=== PATIENT | male | born 1950 | race Caucasian/White ===

== ENCOUNTER 2019-07-08 11:00 | Outpatient (RCR) | payer SELFPAY | END 2019-08-07 00:01 | LOC: CR 11:00 | PROVIDERS: Family Provider Family Medicine; Visit Provider Internal Medicine Cardiovascular Disease | DX: I50.21 Acute systolic (congestive) heart failure (principal) ==

== ENCOUNTER 2019-08-15 08:50 | Outpatient (RCR) | payer SELFPAY | END 2019-09-07 23:59 | disposition home or self-care (01) | LOC: CR 08:50 | PROVIDERS: Family Provider Family Medicine; PCP Family Medicine; Referring Provider Internal Medicine Cardiovascular Disease; Visit Provider Internal Medicine Cardiovascular Disease | DX: I50.21 Acute systolic (congestive) heart failure (principal) ==

== ENCOUNTER 2019-09-10 11:20 | Outpatient (RCR) | payer SELFPAY | END 2019-10-06 23:59 | disposition home or self-care (01) | LOC: CR 11:20 | PROVIDERS: Family Provider Family Medicine; PCP Family Medicine; Referring Provider Internal Medicine Cardiovascular Disease; Visit Provider Internal Medicine Cardiovascular Disease | DX: I50.21 Acute systolic (congestive) heart failure (principal) ==

== ENCOUNTER 2019-10-08 11:38 | Outpatient (RCR) | payer SELFPAY | END 2019-11-06 23:59 | disposition home or self-care (01) | LOC: CR 11:38 | PROVIDERS: Family Provider Family Medicine; PCP Family Medicine; Referring Provider Internal Medicine Cardiovascular Disease; Visit Provider Internal Medicine Cardiovascular Disease | DX: I50.21 Acute systolic (congestive) heart failure (principal) ==

== ENCOUNTER 2020-01-07 13:11 | Outpatient (RCR) | payer SELFPAY | END 2020-02-05 23:59 | disposition home or self-care (01) | LOC: CR 13:11 | PROVIDERS: Family Provider Family Medicine; PCP Family Medicine; Referring Provider Internal Medicine Cardiovascular Disease; Visit Provider Internal Medicine Cardiovascular Disease | DX: I50.21 Acute systolic (congestive) heart failure (principal) ==

== ENCOUNTER 2020-03-04 10:54 | Outpatient (RCR) | payer SELFPAY | END 2020-03-07 23:59 | disposition home or self-care (01) | LOC: CR 10:54 | PROVIDERS: Family Provider Family Medicine; PCP Family Medicine; Referring Provider Internal Medicine Cardiovascular Disease; Visit Provider Internal Medicine Cardiovascular Disease | DX: I50.9 Heart failure, unspecified (principal) ==

== ENCOUNTER 2020-03-11 11:04 | Outpatient (RCR) | payer SELFPAY | END 2020-04-07 23:59 | disposition home or self-care (01) | LOC: CR 11:04 | PROVIDERS: Family Provider Family Medicine; PCP Family Medicine; Referring Provider Internal Medicine Cardiovascular Disease; Visit Provider Internal Medicine Cardiovascular Disease | DX: I50.21 Acute systolic (congestive) heart failure (principal) ==

== ENCOUNTER 2020-04-08 14:19 | Outpatient (RCR) | payer SELFPAY | END 2020-05-07 23:59 | disposition home or self-care (01) | LOC: CR 14:19 | PROVIDERS: Family Provider Family Medicine; PCP Family Medicine; Referring Provider Internal Medicine Cardiovascular Disease; Visit Provider Internal Medicine Cardiovascular Disease | DX: I50.21 Acute systolic (congestive) heart failure (principal) ==

== ENCOUNTER 2020-05-09 11:13 | Outpatient (RCR) | payer SELFPAY | END 2020-06-07 23:59 | disposition home or self-care (01) | LOC: CR 11:13 | PROVIDERS: Family Provider Family Medicine; PCP Family Medicine; Referring Provider Internal Medicine Cardiovascular Disease; Visit Provider Internal Medicine Cardiovascular Disease | DX: I50.21 Acute systolic (congestive) heart failure (principal) ==

== ENCOUNTER 2020-06-10 13:17 | Outpatient (RCR) | payer SELFPAY | END 2020-07-07 23:59 | disposition home or self-care (01) | LOC: CR 13:17 | PROVIDERS: Family Provider Family Medicine; PCP Family Medicine; Referring Provider Internal Medicine Cardiovascular Disease; Visit Provider Internal Medicine Cardiovascular Disease | DX: I50.9 Heart failure, unspecified (principal) ==

== ENCOUNTER 2020-07-10 13:42 | Outpatient (RCR) | payer SELFPAY | END 2020-08-07 23:59 | disposition home or self-care (01) | LOC: CR 13:42 | PROVIDERS: Family Provider Family Medicine; PCP Family Medicine; Referring Provider Internal Medicine Cardiovascular Disease; Visit Provider Internal Medicine Cardiovascular Disease | DX: I50.9 Heart failure, unspecified (principal) ==

== ENCOUNTER 2020-08-12 13:31 | Outpatient (RCR) | payer SELFPAY | END 2020-09-07 23:59 | disposition home or self-care (01) | LOC: CR 13:31 | PROVIDERS: Family Provider Family Medicine; PCP Family Medicine; Referring Provider Internal Medicine Cardiovascular Disease; Visit Provider Internal Medicine Cardiovascular Disease | DX: I50.9 Heart failure, unspecified (principal) ==

== ENCOUNTER 2020-09-09 11:06 | Outpatient (RCR) | payer SELFPAY | END 2020-10-05 23:59 | disposition home or self-care (01) | LOC: CR 11:06 | PROVIDERS: Family Provider Family Medicine; PCP Family Medicine; Referring Provider Internal Medicine Cardiovascular Disease; Visit Provider Internal Medicine Cardiovascular Disease | DX: I50.40 Unspecified combined systolic (congestive) and diastolic (congestive) heart failure (principal) ==

== ENCOUNTER 2020-10-09 11:04 | Outpatient (RCR) | payer SELFPAY | END 2020-11-05 23:59 | disposition home or self-care (01) | LOC: CR 11:04 | PROVIDERS: Family Provider Family Medicine; PCP Family Medicine; Referring Provider Internal Medicine Cardiovascular Disease; Visit Provider Internal Medicine Cardiovascular Disease | DX: I50.9 Heart failure, unspecified (principal) ==

== ENCOUNTER 2020-11-06 09:02 | Outpatient (RCR) | payer SELFPAY | END 2020-12-05 23:59 | disposition home or self-care (01) | LOC: CR 09:02 | PROVIDERS: Family Provider Family Medicine; PCP Family Medicine; Referring Provider Internal Medicine Cardiovascular Disease; Visit Provider Internal Medicine Cardiovascular Disease | DX: I50.9 Heart failure, unspecified (principal) ==

== ENCOUNTER 2020-12-08 10:55 | Outpatient (RCR) | payer SELFPAY | END 2021-01-05 23:59 | disposition home or self-care (01) | LOC: CR 10:55 | PROVIDERS: Family Provider Family Medicine; PCP Family Medicine; Referring Provider Internal Medicine Cardiovascular Disease; Visit Provider Internal Medicine Cardiovascular Disease | DX: I50.9 Heart failure, unspecified (principal) ==

== ENCOUNTER 2021-01-06 14:30 | Outpatient (RCR) | payer SELFPAY | END 2021-02-04 23:59 | disposition home or self-care (01) | LOC: CR 14:30 | PROVIDERS: Family Provider Family Medicine; PCP Family Medicine; Referring Provider Internal Medicine Cardiovascular Disease; Visit Provider Internal Medicine Cardiovascular Disease | DX: I50.9 Heart failure, unspecified (principal) ==

== ENCOUNTER 2021-02-05 14:10 | Outpatient (RCR) | payer SELFPAY | END 2021-03-07 23:59 | disposition home or self-care (01) | LOC: CR 14:10 | PROVIDERS: Family Provider Family Medicine; PCP Family Medicine; Referring Provider Internal Medicine Cardiovascular Disease; Visit Provider Internal Medicine Cardiovascular Disease | DX: I50.40 Unspecified combined systolic (congestive) and diastolic (congestive) heart failure (principal) ==

== ENCOUNTER 2021-03-09 14:50 | Outpatient (RCR) | payer SELFPAY | END 2021-04-07 23:59 | disposition home or self-care (01) | LOC: CR 14:50 | PROVIDERS: Family Provider Family Medicine; PCP Family Medicine; Referring Provider Internal Medicine Cardiovascular Disease; Visit Provider Internal Medicine Cardiovascular Disease | DX: I50.9 Heart failure, unspecified (principal) ==

== ENCOUNTER 2021-04-08 10:30 | Outpatient (RCR) | payer SELFPAY | END 2021-05-07 23:59 | disposition home or self-care (01) | LOC: CR 10:30 | PROVIDERS: Family Provider Family Medicine; PCP Family Medicine; Referring Provider Internal Medicine Cardiovascular Disease; Visit Provider Internal Medicine Cardiovascular Disease | DX: I50.9 Heart failure, unspecified (principal) ==

== ENCOUNTER 2021-05-08 08:43 | Outpatient (RCR) | payer SELFPAY | END 2021-06-07 23:59 | disposition home or self-care (01) | LOC: CR 08:43 | PROVIDERS: Family Provider Family Medicine; PCP Family Medicine; Referring Provider Internal Medicine Cardiovascular Disease; Visit Provider Internal Medicine Cardiovascular Disease | DX: I50.9 Heart failure, unspecified (principal) ==

== ENCOUNTER 2021-06-08 12:18 | Outpatient (RCR) | payer SELFPAY | END 2021-07-07 23:59 | disposition home or self-care (01) | LOC: CR 12:18 | PROVIDERS: Family Provider Family Medicine; PCP Family Medicine; Referring Provider Internal Medicine Cardiovascular Disease; Visit Provider Internal Medicine Cardiovascular Disease | DX: I50.9 Heart failure, unspecified (principal) ==

== ENCOUNTER 2021-07-08 09:54 | Outpatient (RCR) | payer SELFPAY | END 2021-08-07 23:59 | disposition home or self-care (01) | LOC: CR 09:54 | PROVIDERS: Family Provider Family Medicine; PCP Family Medicine; Referring Provider Internal Medicine Cardiovascular Disease; Visit Provider Internal Medicine Cardiovascular Disease | DX: I50.9 Heart failure, unspecified (principal) ==

== ENCOUNTER 2021-08-10 10:52 | Outpatient (RCR) | payer SELFPAY | END 2021-09-07 23:59 | disposition home or self-care (01) | LOC: CR 10:52 | PROVIDERS: Family Provider Family Medicine; PCP Family Medicine; Referring Provider Internal Medicine Cardiovascular Disease; Visit Provider Internal Medicine Cardiovascular Disease | DX: I50.40 Unspecified combined systolic (congestive) and diastolic (congestive) heart failure (principal) ==

== ENCOUNTER 2021-09-08 13:18 | Outpatient (RCR) | payer SELFPAY | END 2021-10-05 23:59 | disposition home or self-care (01) | LOC: CR 13:18 | PROVIDERS: Family Provider Family Medicine; PCP Family Medicine; Referring Provider Internal Medicine Cardiovascular Disease; Visit Provider Internal Medicine Cardiovascular Disease | DX: I50.9 Heart failure, unspecified (principal) ==

== ENCOUNTER 2021-10-06 12:40 | Outpatient (RCR) | payer SELFPAY | END 2021-11-05 23:59 | disposition home or self-care (01) | LOC: CR 12:40 | PROVIDERS: Family Provider Family Medicine; PCP Family Medicine; Referring Provider Internal Medicine Cardiovascular Disease; Visit Provider Internal Medicine Cardiovascular Disease | DX: I50.9 Heart failure, unspecified (principal) ==

== ENCOUNTER 2021-11-06 14:27 | Outpatient (RCR) | payer SELFPAY | END 2021-12-05 23:59 | disposition home or self-care (01) | LOC: CR 14:27 | PROVIDERS: Family Provider Family Medicine; PCP Family Medicine; Referring Provider Internal Medicine Cardiovascular Disease; Visit Provider Internal Medicine Cardiovascular Disease | DX: I50.9 Heart failure, unspecified (principal) ==

== ENCOUNTER → 2021-12-03 11:09 | Outpatient (BNVA) | payer MEDICARE, OTHER, SELFPAY | PROVIDERS: Family Provider Family Medicine; PCP Family Medicine; Visit Provider Internal Medicine Cardiovascular Disease | DX: Z79.01 Long term (current) use of anticoagulants (principal) ==

== ENCOUNTER 2021-12-07 13:24 | Outpatient (RCR) | payer SELFPAY | END 2022-01-05 23:59 | disposition home or self-care (01) | LOC: CR 13:24 | PROVIDERS: Family Provider Family Medicine; PCP Family Medicine; Referring Provider Internal Medicine Cardiovascular Disease; Visit Provider Internal Medicine Cardiovascular Disease | DX: I50.9 Heart failure, unspecified (principal) ==

== ENCOUNTER → 2021-12-09 09:29 | Outpatient (BNVA) | payer MEDICARE, OTHER, SELFPAY | PROVIDERS: Family Provider Family Medicine; PCP Family Medicine; Visit Provider Internal Medicine Cardiovascular Disease | DX: Z79.01 Long term (current) use of anticoagulants (principal) ==

== ENCOUNTER 2021-12-18 08:45 | Emergency (ER) | payer MEDICARE, OTHER, SELFPAY ==
--- NOTE | 2021-12-18 08:56 | XR_ITS ---
WS: [id number] LEFT HAND: 3 VIEW(S) TECHNIQUE: PA, oblique and lateral. HISTORY: cut distal end of thumb on table saw COMPARISON: None available. No definite fracture. There is a lucency that extends through the terminal tuft first finger but is w ell-corticated and I suspect this is probably normal development. Mild soft tissue edema and increased density surrounding the distal first finger. Degenerative changes at the radiocarpal joint. XR/XR hand LT min 3V* [id number] IMPRESSION: No definite fracture identified. There is soft tissue injury involving the dist al first finger. The lucency through the first terminal tuft is thought to be n ormal developmental lucency.
[2021-12-18 08:58] VITALS: BP 138/68; PULSE 60; RESP 16; TEMP 36.9; O2SAT 98; BMI 33.0
--- NOTE | 2021-12-18 09:00 | ED_ITS ---
HPI - Extremity Injury (Upper) General: Chief Complaint: Wound/Laceration Stated Complaint: Cut his finger on his Left hand Time Seen by Provider: 12/18/21 08:53 History of Present Illness: Patient is a 71-year-old male comes to the ED with left hand injury. Patient was using a table saw this morning and cut the distal end of his left thumb with a table saw. Patient is currently on warfarin. He is not up-to-date on his tetanus. He states his pain is mild. Associated symptoms: Denies neck pain or weakness in extremities Review of Systems Const: Denies: fever(s), chills or fatigue Eyes: Denies: change in vision or eye discomfort ENMT: Denies: throat pain, odynophagia, nasal discharge or nasal congestion Card: Denies: chest pain, palpitations, edema, swelling of feet/ankles, dyspnea on exertion or orthopnea Resp: Denies: dyspnea, productive cough or non-productive cough GI: Denies: abdominal pain, nausea, vomiting, diarrhea, constipation or hematochezia : Denies: flank pain, difficulty urinating, dysuria or hematuria Musc: Denies: neck pain, back pain or extremity swelling Skin/Breast: Reports: new lesions (Laceration to left thumb); Denies: rash Neuro: Denies: headache(s), numbness in extremities or weakness in extremities [facility] ED PFSH: Medical History Atrial fibrillation Cardiomyopathy CHF (congestive heart failure) HTN (hypertension) Surgical History S/P knee surgery Family History Sister Cancer Father Heart disease Other Hypertension Social History Smoking and tobacco status: former smoker Physical Exam Const: COMMON NORMALS: patient oriented x3 HENMT: COMMON NORMALS: normocephalic HEAD & SCALP: normocephalic MOUTH: Normal oral and palatal mucosa present THROAT: posterior oropharynx normal and uvula midline Neck/C-Spine: COMMON NORMALS: supple GENERAL: Yes normal visual inspection Resp: COMMON NORMALS: normal respiratory effort, No retractions, No use of accessory muscles and clear to auscultation bilaterally AUSCULTATION: clear to auscultation bilaterally Cardio: COMMON NORMALS: regular rate, regular rhythm, S1 normal heart sound present, S2 normal heart sound present, No gallops present (Cardio), No clicks present (Cardio), No murmurs present (Cardio) and Peripheral pulses 2+ throughout RATE: regular rate RHYTHM: regular rhythm HEART SOUNDS: S1 normal heart sound present and S2 normal heart sound present PERIPHERAL PULSES: Peripheral pulses 2+ throughout GI: COMMON NORMALS: Normal to inspection, nondistended, normoactive bowel sounds present, Soft to palpation, non-tender and no masses PALPATION: Yes Soft to palpation : COMMON NORMALS: Yes no CVA tenderness BLADDER/KIDNEY EXAM: Yes no CVA tenderness Back/Pelvis: COMMON NORMALS: no CVA tenderness Extremity: NARRATIVE EXTREMITY EXAM: Left hand distal pad of thumb?2 cm skin avulsion that is irregular in shape and appears superficial. No nail bed or nail damage noted. No visible foreign body or contaminants seen. Minimal to no active bleeding. Neuro: COMMON NORMALS: patient oriented x3 and moves all extremities Skin: GENERAL SKIN EXAM: dry skin Procedures Nerve Block Nerve Block 1: Time out performed: Yes Local Anesthetic: bupivacaine 0.25% Amount of anesthesia used (mL): 4 Side: left Nerve Blocks: digital (Thumb) Procedure Successful: Yes Patient Tolerated Procedure: well Complications: none Course Vital Signs: Vital signs: Vital Signs Temperature 98.4 F 12/18/21 08:58 Pulse Rate 50 L 12/18/21 09:59 Respiratory Rate 16 12/18/21 09:59 Blood Pressure 138/88 12/18/21 09:59 Pulse Oximetry 100 12/18/21 09:59 MDM - Extremity Injury (Upper) Medical Decision Making Patient is a 71-year-old male comes to the ED with cut to left thumb. Patient is on warfarin. Patient cut distal pad of left thumb on a table saw. Vital stable. Exam of patient shows a superficial 2 cm skin avulsion of the distal pad of left thumb. No nail or nailbed damage noted. No active bleeding. Sutures not performed because it would not help close up wound at all. X-ray of left hand showed no acute fractures identified. I performed a digital block with bupivacaine to provide pain relief and nurse performed extensive irrigation with normal saline and washed wound with Betadine iodine as well. Some Surgicel was placed on wound to help with healing and to prevent bleeding. He was given updated tetanus here in the ED and discharged home with a prescription for a prophylactic antibiotic and pain med. He was told to follow-up with his PCP in the next week for reevaluation. Return to ED precautions given. He was directed on how to care for wound. Patient understood and agreed with plan. Lab Data Radiology Impressions Hand X-Ray 12/18/21 08:56 IMPRESSION: No definite fracture identified. There is soft tissue injury involving the distal first finger. The lucency through the first terminal tuft is thought to be normal developmental lucency. Discharge Plan Discharge Patient Disposition: Home Clinical Impression: Avulsion of skin of finger Qualifiers: Encounter type: initial encounter Qualified Code(s): S61.209A - Unspecified open wound of unspecified finger without damage to nail, initial encounter Condition: Stable Prescriptions: New cephalexin 500 mg capsule 500 mg PO Q6H 4 Days Qty: 16 0RF No Action furosemide 40 mg tablet 40 mg PO DAILY 0RF atorvastatin 40 mg tablet 40 mg PO DAILY 0RF warfarin 1 mg tablet 1 mg PO DAILY 0RF Protocol: Dose Management Condition: Tuesday Dose/Route: 3 mg Instruction: 1 x 3 mg tablet Condition: Tuesday Dose/Route: 3 mg Instruction: 1 x 3 mg tablet Condition: Tuesday Dose/Route: 3 mg Instruction: 1 x 3 mg tablet Condition: Tuesday Dose/Route: 3 mg Instruction: 1 x 3 mg tablet Condition: Dose/Route: 3 mg Instruction: 1 x 3 mg tablet Condition: Tuesday Dose/Route: 3 mg Instruction: 1 x 3 mg tablet Condition: Tuesday Dose/Route: 3 mg Instruction: 1 x 3 mg tablet Protocol Text: Adjustment Start Date: Tuesday12/18/21 INR Value: 2.2 INR Date: 12/14/21 Recheck Date: 12/25/21 warfarin 4 mg tablet 4 mg PO DAILY 30 Days Qty: 30 3RF Protocol: Dose Management Condition: Tuesday Dose/Route: 3 mg Instruction: 1 x 3 mg tablet Condition: Tuesday Dose/Route: 3 mg Instruction: 1 x 3 mg tablet Condition: Tuesday Dose/Route: 3 mg Instruction: 1 x 3 mg tablet Condition: Tuesday Dose/Route: 3 mg Instruction: 1 x 3 mg tablet Condition: Dose/Route: 3 mg Instruction: 1 x 3 mg tablet Condition: Tuesday Dose/Route: 3 mg Instruction: 1 x 3 mg tablet Condition: Tuesday Dose/Route: 3 mg Instruction: 1 x 3 mg tablet Protocol Text: Adjustment Start Date: Tuesday12/18/21 INR Value: 2.2 INR Date: 12/14/21 Recheck Date: 12/25/21 amlodipine 10 mg tablet 10 mg PO DAILY Qty: 90 3RF warfarin 3 mg tablet 3 mg PO DAILY Qty: 90 3RF Protocol: Dose Management Condition: Tuesday Dose/Route: 3 mg Instruction: 1 x 3 mg tablet Condition: Tuesday Dose/Route: 3 mg Instruction: 1 x 3 mg tablet Condition: Tuesday Dose/Route: 3 mg Instruction: 1 x 3 mg tablet Condition: Tuesday Dose/Route: 3 mg Instruction: 1 x 3 mg tablet Condition: Dose/Route: 3 mg Instruction: 1 x 3 mg tablet Condition: Tuesday Dose/Route: 3 mg Instruction: 1 x 3 mg tablet Condition: Tuesday Dose/Route: 3 mg Instruction: 1 x 3 mg tablet Protocol Text: Adjustment Start Date: Tuesday12/18/21 INR Value: 2.2 INR Date: 12/14/21 Recheck Date: 12/25/21 spironolactone 25 mg tablet 37.5 mg PO DAILY Qty: 135 3RF carvedilol 6.25 mg tablet 6.25 mg PO BID Qty: 180 3RF carvedilol 12.5 mg tablet See Rx Instructions .ROUTE .COMPLEX Qty: 180 3RF Dose Instruction: Take 1 tablet by mouth twice daily Rx Instructions: Take 1 tablet by mouth twice daily Discharge Orders: Discharge ED (Routine); Ordered 12/18/21 Ordered By: Israel Santillan Referrals: Enedina Peters MD [Primary Care Provider] - Discharge Diet: Regular Discharge Activity: Limit activity as instructed Patient Instructions: Skin Avulsion (ED), Opioid Safety Activity Restrictions/Additional Instructions: Take full course of antibiotics as prescribed. Keep wound clean and dry daily. He is soap and water to clean it and apply a little bit of triple antibiotic ointment on wound and bandage daily. Signs of infection such as redness, warmth, increased tenderness and puslike drainage. If you see the signs of infection return to the ED, urgent care or PCP for reevaluation. call your PCP to schedule a follow-up appointment for wound to be reevaluated in the next 5 to 7 days. Continue taking all home meds. Follow discharge plans as discussed. You can return to the ED if symptoms worsen. Coding Level of Care Code ED Aoc Plans Intelligence Officer Chief for Rekha Brown Exam Comprehensive
[2021-12-18] MEDS: tetanus-dipt-pertussis 0.5 mL SDV IM (09:04)
[2021-12-18] MEDS: HYDROcodone-acetaminophen 7.5-325 mg Tablet 1 TAB PO (09:04)
--- NOTE | 2021-12-18 09:57 | PC.NURSE ---
Wound cleansed with NS/betadine scrub. Dressing applied, surgicel with elizabeth wrap/cover. Patient tolerated well
[2021-12-18 09:59] VITALS: BP 138/88; PULSE 50; RESP 16; O2SAT 100
== END 2021-12-18 10:00 | disposition home or self-care (01) ==
PROVIDERS: Emergency Provider Physician Assistant; PCP Family Medicine
DX: W27.0XXA Contact with workbench tool, initial encounter (principal); Z23 Encounter for immunization
CPT/HCPCS: 73130; 90471; 90715; 99283; J3490

== ENCOUNTER → 2021-12-24 08:18 | Outpatient (BNVA) | payer MEDICARE, OTHER, SELFPAY | PROVIDERS: PCP Family Medicine; Visit Provider Internal Medicine Cardiovascular Disease | DX: Z79.01 Long term (current) use of anticoagulants (principal) ==

== ENCOUNTER → 2021-12-31 08:41 | Outpatient (BNVA) | payer MEDICARE, OTHER, SELFPAY | PROVIDERS: PCP Family Medicine; Visit Provider Internal Medicine Cardiovascular Disease | DX: Z79.01 Long term (current) use of anticoagulants (principal) ==

== ENCOUNTER 2022-01-06 13:23 | Outpatient (RCR) | payer SELFPAY | END 2022-02-04 23:59 | disposition home or self-care (01) | LOC: CR 13:23 | PROVIDERS: Family Provider Family Medicine; PCP Family Medicine; Referring Provider Internal Medicine Cardiovascular Disease; Visit Provider Internal Medicine Cardiovascular Disease | DX: I50.9 Heart failure, unspecified (principal) ==

== ENCOUNTER → 2022-01-13 09:20 | Outpatient (BNVA) | payer MEDICARE, OTHER, SELFPAY | PROVIDERS: Family Provider Family Medicine; PCP Family Medicine; Visit Provider Internal Medicine Cardiovascular Disease | DX: Z79.01 Long term (current) use of anticoagulants (principal) ==

== ENCOUNTER → 2022-01-20 09:44 | Outpatient (BNVA) | payer MEDICARE, OTHER, SELFPAY | PROVIDERS: Family Provider Family Medicine; PCP Family Medicine; Visit Provider Internal Medicine Cardiovascular Disease | DX: Z79.01 Long term (current) use of anticoagulants (principal) ==

== ENCOUNTER → 2022-01-27 16:29 | Outpatient (BNVA) | payer MEDICARE, OTHER, SELFPAY | PROVIDERS: Family Provider Family Medicine; PCP Family Medicine; Visit Provider Internal Medicine Cardiovascular Disease | DX: Z79.01 Long term (current) use of anticoagulants (principal) ==

== ENCOUNTER → 2022-02-04 10:35 | Outpatient (BNVA) | payer MEDICARE, OTHER, SELFPAY | PROVIDERS: Family Provider Family Medicine; PCP Family Medicine; Visit Provider Internal Medicine Cardiovascular Disease | DX: Z79.01 Long term (current) use of anticoagulants (principal) ==

== ENCOUNTER 2022-02-05 13:51 | Outpatient (RCR) | payer SELFPAY | END 2022-03-07 23:59 | disposition home or self-care (01) | LOC: CR 13:51 | PROVIDERS: Family Provider Family Medicine; PCP Family Medicine; Referring Provider Internal Medicine; Visit Provider Internal Medicine | DX: I50.40 Unspecified combined systolic (congestive) and diastolic (congestive) heart failure (principal) ==

== ENCOUNTER → 2022-02-12 10:47 | Outpatient (BNVA) | payer MEDICARE, OTHER, SELFPAY | PROVIDERS: Family Provider Family Medicine; PCP Family Medicine; Visit Provider Internal Medicine Cardiovascular Disease | DX: Z79.01 Long term (current) use of anticoagulants (principal) ==

== ENCOUNTER → 2022-02-17 08:52 | Outpatient (BNVA) | payer MEDICARE, OTHER, SELFPAY | PROVIDERS: Family Provider Family Medicine; PCP Family Medicine; Visit Provider Internal Medicine Cardiovascular Disease | DX: Z79.01 Long term (current) use of anticoagulants (principal) ==

== ENCOUNTER → 2022-02-24 09:53 | Outpatient (BNVA) | payer MEDICARE, OTHER, SELFPAY | PROVIDERS: Family Provider Family Medicine; PCP Family Medicine; Visit Provider Internal Medicine Cardiovascular Disease | DX: Z79.01 Long term (current) use of anticoagulants (principal) ==

== ENCOUNTER → 2022-03-02 10:21 | Outpatient (BNVA) | payer MEDICARE, OTHER, SELFPAY | PROVIDERS: Family Provider Family Medicine; PCP Family Medicine; Visit Provider Internal Medicine Cardiovascular Disease | DX: Z79.01 Long term (current) use of anticoagulants (principal) ==

== ENCOUNTER 2022-04-08 12:26 | Outpatient (RCR) | payer SELFPAY | END 2022-05-07 23:59 | disposition home or self-care (01) | LOC: CR 12:26 | PROVIDERS: Family Provider Family Medicine; PCP Family Medicine; Referring Provider Internal Medicine; Visit Provider Internal Medicine | DX: I50.9 Heart failure, unspecified (principal) ==

== ENCOUNTER 2022-05-09 14:24 | Outpatient (RCR) | payer SELFPAY | END 2022-06-07 23:59 | disposition home or self-care (01) | LOC: CR 14:24 | PROVIDERS: Family Provider Family Medicine; PCP Family Medicine; Referring Provider Internal Medicine; Visit Provider Internal Medicine | DX: I50.9 Heart failure, unspecified (principal) ==

== ENCOUNTER 2022-08-23 14:43 | Outpatient (RCR) | payer SELFPAY | END 2022-09-07 23:59 | disposition home or self-care (01) | LOC: CR 14:43 | PROVIDERS: Family Provider Family Medicine; PCP Family Medicine; Referring Provider Internal Medicine; Visit Provider Internal Medicine | DX: I50.40 Unspecified combined systolic (congestive) and diastolic (congestive) heart failure (principal) ==

== ENCOUNTER 2022-09-08 15:12 | Outpatient (RCR) | payer SELFPAY | END 2022-10-05 23:59 | disposition home or self-care (01) | LOC: CR 15:12 | PROVIDERS: Family Provider Family Medicine; PCP Family Medicine; Referring Provider Internal Medicine; Visit Provider Internal Medicine | DX: I50.32 Chronic diastolic (congestive) heart failure (principal) ==

== ENCOUNTER → 2022-09-16 11:46 | Outpatient (BNVA) | payer MEDICARE, OTHER, SELFPAY | PROVIDERS: Family Provider Family Medicine; PCP Family Medicine; Visit Provider Internal Medicine Cardiovascular Disease | DX: I48.0 Paroxysmal atrial fibrillation (principal); Z79.01 Long term (current) use of anticoagulants; I11.0 Hypertensive heart disease with heart failure; I50.32 Chronic diastolic (congestive) heart failure; I73.9 Peripheral vascular disease, unspecified; Z87.891 Personal history of nicotine dependence | CPT/HCPCS: 99213 ==

== ENCOUNTER 2022-10-06 15:01 | Outpatient (RCR) | payer SELFPAY | END 2022-11-05 23:59 | disposition home or self-care (01) | LOC: CR 15:01 | PROVIDERS: Family Provider Family Medicine; PCP Family Medicine; Referring Provider Internal Medicine; Visit Provider Internal Medicine | DX: I50.40 Unspecified combined systolic (congestive) and diastolic (congestive) heart failure (principal) ==

== ENCOUNTER 2022-11-08 13:33 | Outpatient (RCR) | payer SELFPAY | END 2022-12-05 23:59 | disposition home or self-care (01) | LOC: CR 13:33 | PROVIDERS: Family Provider Family Medicine; PCP Family Medicine; Referring Provider Internal Medicine; Visit Provider Internal Medicine | DX: I50.40 Unspecified combined systolic (congestive) and diastolic (congestive) heart failure (principal) ==

== ENCOUNTER 2022-12-06 15:39 | Outpatient (RCR) | payer SELFPAY | END 2023-01-05 23:59 | disposition home or self-care (01) | LOC: CR 15:39 | PROVIDERS: Family Provider Family Medicine; PCP Family Medicine; Referring Provider Internal Medicine; Visit Provider Internal Medicine | DX: I50.32 Chronic diastolic (congestive) heart failure (principal) ==

== ENCOUNTER 2023-01-07 13:30 | Outpatient (RCR) | payer SELFPAY | END 2023-02-04 23:59 | disposition home or self-care (01) | LOC: CR 13:30 | PROVIDERS: Family Provider Family Medicine; PCP Family Medicine; Referring Provider Internal Medicine; Visit Provider Internal Medicine | DX: I50.40 Unspecified combined systolic (congestive) and diastolic (congestive) heart failure (principal) ==

== ENCOUNTER 2023-02-07 10:48 | Outpatient (RCR) | payer SELFPAY | END 2023-03-07 23:59 | disposition home or self-care (01) | LOC: CR 10:48 | PROVIDERS: Family Provider Family Medicine; PCP Family Medicine; Referring Provider Internal Medicine; Visit Provider Internal Medicine | DX: I50.40 Unspecified combined systolic (congestive) and diastolic (congestive) heart failure (principal) ==

== ENCOUNTER 2023-03-08 14:25 | Outpatient (RCR) | payer SELFPAY | END 2023-04-07 23:59 | disposition home or self-care (01) | LOC: CR 14:25 | PROVIDERS: Family Provider Family Medicine; PCP Family Medicine; Referring Provider Internal Medicine; Visit Provider Internal Medicine | DX: I50.40 Unspecified combined systolic (congestive) and diastolic (congestive) heart failure (principal) ==

== ENCOUNTER → 2023-04-04 13:44 | Outpatient (BNVA) | payer MEDICARE, OTHER, SELFPAY | PROVIDERS: Family Provider Family Medicine; PCP Family Medicine; Visit Provider Internal Medicine Cardiovascular Disease | DX: I48.0 Paroxysmal atrial fibrillation (principal); I73.9 Peripheral vascular disease, unspecified; I11.0 Hypertensive heart disease with heart failure; I50.32 Chronic diastolic (congestive) heart failure; Z87.891 Personal history of nicotine dependence; Z79.01 Long term (current) use of anticoagulants | CPT/HCPCS: 99214 ==

== ENCOUNTER 2023-04-08 11:21 | Outpatient (RCR) | payer SELFPAY | END 2023-05-07 23:59 | disposition home or self-care (01) | LOC: CR 11:21 | PROVIDERS: Family Provider Family Medicine; PCP Family Medicine; Referring Provider Internal Medicine; Visit Provider Internal Medicine | DX: I50.40 Unspecified combined systolic (congestive) and diastolic (congestive) heart failure (principal) ==

== ENCOUNTER → 2023-05-05 09:34 | Outpatient (BNVA) | payer MEDICARE, OTHER, SELFPAY | PROVIDERS: Family Provider Family Medicine; PCP Family Medicine; Visit Provider Internal Medicine Cardiovascular Disease | DX: I48.0 Paroxysmal atrial fibrillation (principal); Z53.9 Procedure and treatment not carried out, unspecified reason | CPT/HCPCS: 93793 ==

== ENCOUNTER 2023-05-10 08:58 | Outpatient (RCR) | payer SELFPAY | END 2023-06-07 23:59 | disposition home or self-care (01) | LOC: CR 08:58 | PROVIDERS: Family Provider Family Medicine; PCP Family Medicine; Referring Provider Internal Medicine; Visit Provider Internal Medicine | DX: I50.40 Unspecified combined systolic (congestive) and diastolic (congestive) heart failure (principal) ==

== ENCOUNTER 2023-06-08 08:31 | Outpatient (RCR) | payer SELFPAY | END 2023-07-07 23:59 | disposition home or self-care (01) | LOC: CR 08:31 | PROVIDERS: Family Provider Family Medicine; PCP Family Medicine; Referring Provider Internal Medicine; Visit Provider Internal Medicine | DX: I50.40 Unspecified combined systolic (congestive) and diastolic (congestive) heart failure (principal) | CPT/HCPCS: 93798 ==

== ENCOUNTER 2023-07-12 12:15 | Outpatient (RCR) | payer SELFPAY | END 2023-08-07 23:59 | disposition home or self-care (01) | LOC: CR 12:15 | PROVIDERS: Family Provider Family Medicine; PCP Family Medicine; Referring Provider Internal Medicine; Visit Provider Internal Medicine | DX: I50.40 Unspecified combined systolic (congestive) and diastolic (congestive) heart failure (principal) ==

== ENCOUNTER 2023-08-09 09:45 | Outpatient (RCR) | payer SELFPAY | END 2023-09-07 23:59 | disposition home or self-care (01) | LOC: CR 09:45 | PROVIDERS: Family Provider Family Medicine; PCP Family Medicine; Referring Provider Internal Medicine; Visit Provider Internal Medicine | DX: I50.32 Chronic diastolic (congestive) heart failure (principal) ==

== ENCOUNTER 2023-09-08 11:02 | Outpatient (RCR) | payer SELFPAY | END 2023-10-06 23:59 | disposition home or self-care (01) | LOC: CR 11:02 | PROVIDERS: Family Provider Family Medicine; PCP Family Medicine; Referring Provider Internal Medicine; Visit Provider Internal Medicine | DX: I50.40 Unspecified combined systolic (congestive) and diastolic (congestive) heart failure (principal) ==

== ENCOUNTER 2023-10-07 11:16 | Outpatient (RCR) | payer SELFPAY | END 2023-11-06 23:59 | disposition home or self-care (01) | LOC: CR 11:16 | PROVIDERS: Family Provider Family Medicine; PCP Family Medicine; Referring Provider Internal Medicine; Visit Provider Internal Medicine | DX: I50.40 Unspecified combined systolic (congestive) and diastolic (congestive) heart failure (principal) ==

== ENCOUNTER 2023-11-08 11:53 | Outpatient (RCR) | payer SELFPAY | END 2023-12-06 23:59 | disposition home or self-care (01) | LOC: CR 11:53 | PROVIDERS: Family Provider Family Medicine; PCP Family Medicine; Referring Provider Internal Medicine; Visit Provider Internal Medicine | DX: I50.40 Unspecified combined systolic (congestive) and diastolic (congestive) heart failure (principal) ==

== ENCOUNTER 2023-12-08 12:57 | Outpatient (RCR) | payer MEDICARE, OTHER, SELFPAY | END 2024-01-06 23:59 | disposition home or self-care (01) | LOC: CR 12:57 | PROVIDERS: Family Provider Family Medicine; PCP Family Medicine; Referring Provider Internal Medicine; Visit Provider Internal Medicine | DX: I50.9 Heart failure, unspecified (principal) ==

== ENCOUNTER → 2023-12-26 11:07 | Outpatient (BNVA) | payer MEDICARE, SELFPAY | PROVIDERS: Family Provider Family Medicine; PCP Family Medicine; Visit Provider Nurse Practitioner Family | DX: I48.0 Paroxysmal atrial fibrillation (principal); I11.0 Hypertensive heart disease with heart failure; I50.32 Chronic diastolic (congestive) heart failure; Z87.891 Personal history of nicotine dependence | CPT/HCPCS: 99214 ==

== ENCOUNTER 2024-01-09 11:56 | Outpatient (RCR) | payer MEDICARE, OTHER, SELFPAY | END 2024-02-05 23:59 | disposition home or self-care (01) | LOC: CR 11:56 | PROVIDERS: Family Provider Family Medicine; PCP Family Medicine; Referring Provider Internal Medicine; Visit Provider Internal Medicine | DX: I50.40 Unspecified combined systolic (congestive) and diastolic (congestive) heart failure (principal) ==

== ENCOUNTER 2024-02-06 15:03 | Outpatient (RCR) | payer SELFPAY | END 2024-03-07 23:59 | disposition home or self-care (01) | LOC: CR 15:03 | PROVIDERS: Family Provider Family Medicine; PCP Family Medicine; Referring Provider Internal Medicine; Visit Provider Internal Medicine | DX: I50.32 Chronic diastolic (congestive) heart failure (principal) ==

== ENCOUNTER 2024-03-08 09:04 | Outpatient (RCR) | payer SELFPAY | END 2024-04-07 18:00 | disposition home or self-care (01) | LOC: CR 09:04 | PROVIDERS: Family Provider Family Medicine; PCP Family Medicine; Referring Provider Internal Medicine; Visit Provider Internal Medicine | DX: I50.40 Unspecified combined systolic (congestive) and diastolic (congestive) heart failure (principal) ==

== ENCOUNTER 2024-04-08 12:00 | Outpatient (RCR) | payer SELFPAY | END 2024-05-07 23:59 | disposition home or self-care (01) | LOC: CR 12:00 | PROVIDERS: Family Provider Family Medicine; PCP Family Medicine; Referring Provider Internal Medicine; Visit Provider Internal Medicine | DX: I50.40 Unspecified combined systolic (congestive) and diastolic (congestive) heart failure (principal) ==

== ENCOUNTER 2024-05-08 13:02 | Outpatient (RCR) | payer SELFPAY | END 2024-06-07 23:59 | disposition home or self-care (01) | LOC: CR 13:02 | PROVIDERS: Family Provider Family Medicine; PCP Family Medicine; Referring Provider Internal Medicine; Visit Provider Internal Medicine | DX: I50.40 Unspecified combined systolic (congestive) and diastolic (congestive) heart failure (principal) ==

== ENCOUNTER → 2024-05-14 14:12 | Outpatient (BNVA) | payer MEDICARE, OTHER, SELFPAY | PROVIDERS: Family Provider Family Medicine; PCP Family Medicine; Visit Provider Internal Medicine Cardiovascular Disease | DX: R07.9 Chest pain, unspecified (principal) | CPT/HCPCS: 93005 ==

== ENCOUNTER 2024-06-07 07:37 | Outpatient (CLI) | payer MEDICARE, OTHER, SELFPAY ==
--- NOTE | 2024-06-07 07:45 | USCV_ITS ---
Farshad Christiansen Age: 74 Gender: M : 1950 Exam Date: 06/07/2024 07:49 Ordering Phys: Veronica Alcantara MD ([email or web address]) Technologist: SUJATA Exam Location: [facility] Indication: SOB BP: / HR: 98 Rhythm: Atrial fibrillation Technical Quality: Adequate MEASUREMENTS (Male / Female) Normal Values 2D ECHO LV Diastolic Diameter PLAX 5.9 cm 4.2 - 5.9 / 3.9 - 5.3 cm LV Systolic Diameter PLAX 5.4 cm IVS Diastolic Thickness 1.2 cm 0.6 - 1.0 / 0.6 - 0.9 cm IVS Systolic Thickness 1.5 cm LVPW Diastolic Thickness 2.0 cm 0.6 - 1.0 / 0.6 - 0.9 cm LVPW Systolic Thickness 1.8 cm LVOT Diameter 2.0 cm LV Ejection Fraction 2D Teich 17.8 % LV Ejection Fraction MOD 4C 23.4 % LV Ejection Fraction MOD 2C 42.1 % LV Ejection Fraction 2C AL 44.1 % LA Diameter 5.1 cm RA Systolic Volume 4C AL 94.6 ml RA Systolic Volume 4C MOD 90.8 ml LA Sys Volume AL 128.3 cm cubed LA Sys Volume Index AL 57.1 cm cubed/m squared Aorta at Sinotubular Diameter 3.3 cm IVC Diameter 2.0 cm M-MODE LA Ao Ratio MM 1.1 AV Cusp Separation MM 1.6 cm DOPPLER AV Peak Velocity 125.0 cm/s LVOT Peak Velocity 64.0 cm/s AV Area Cont Eq vti 1.4 cm squared AV Area Cont Eq pk 1.6 cm squared MV Area PHT 8.0 cm squared Mitral E to A Ratio 78.1 TV Peak Velocity 141.5 cm/s TR Peak Velocity 157.0 cm/s TR Peak Gradient 9.9 mmHg TR Mean Velocity 113.0 cm/s TR Mean Gradient 6.2 mmHg TR Velocity Time Integral 52.7 cm TV Peak E Velocity 52.0 cm/s Right Atrial Pressure 3.0 mmHg Pulmonary Artery Systolic Pressu 12.9 mmHg PV Peak Velocity 77.0 cm/s FINDINGS Left Ventricle Moderately increased left ventricular cavity size. Severely decreased left ventricular systolic function. Left ventricular ejection fraction is estimated at 25 %. There appeared to be anterior anteroseptal and apical wall hypokinesis there appeared to be lateral wall akinesis.Grade II/IV diastolic dysfunction, moderately elevated filling pressures. Right Ventricle Normal right ventricular size. Right Atrium The right atrium is normal in size. Left Atrium Moderately increased left atrial size. Mitral Valve Moderately thickened mitral valve. No mitral valve stenosis. Severe mitral valve regurgitation. Aortic Valve Moderate aortic valve calcification. No aortic valve stenosis. Mild aortic valve regurgitation. Tricuspid Valve Mild tricuspid valve regurgitation. Pulmonic Valve Structurally normal pulmonic valve without significant stenosis. There is no pulmonic regurgitation. Pericardium Normal pericardium without effusion. Aorta Normal ascending aorta dimension. IVC The inferior vena cava appears normal. CONCLUSIONS Moderately increased left ventricular cavity size. Severely decreased left ventricular systolic function. Left ventricular ejection fraction is estimated at 25 %. There appeared to be anterior anteroseptal and apical wall hypokinesis there appeared to be lateral wall akinesis.Grade II/IV diastolic dysfunction, moderately elevated filling pressures. Moderately thickened mitral valve. No mitral valve stenosis. Severe mitral valve regurgitation. Moderate aortic valve calcification. No aortic valve stenosis. Mild aortic valve regurgitation. There is no pericardial effusion. Pulmonary artery systolic pressure is within normal limits. Right atrial pressure is around 10 mm of mercury. Veronica Alcantara MD (Electronically Signed) Final Date: 07 June 2024 17:50 S
== END 2024-06-07 07:38 | disposition home or self-care (01) ==
LOC: RAD 07:38
PROVIDERS: PCP Family Medicine; Visit Provider Internal Medicine Cardiovascular Disease
DX: I50.20 Unspecified systolic (congestive) heart failure (principal); I50.30 Unspecified diastolic (congestive) heart failure; I51.7 Cardiomegaly; I34.81 Nonrheumatic mitral (valve) annulus calcification; I34.0 Nonrheumatic mitral (valve) insufficiency; I70.0 Atherosclerosis of aorta; R06.02 Shortness of breath
CPT/HCPCS: 93306

== ENCOUNTER 2024-06-08 12:49 | Outpatient (RCR) | payer SELFPAY | END 2024-07-07 23:59 | disposition home or self-care (01) | LOC: CR 12:49 | PROVIDERS: Family Provider Family Medicine; PCP Family Medicine; Referring Provider Internal Medicine; Visit Provider Internal Medicine | DX: I50.40 Unspecified combined systolic (congestive) and diastolic (congestive) heart failure (principal) ==

== ENCOUNTER 2024-06-29 09:00 | Inpatient (IN) | payer MEDICARE, OTHER, SELFPAY ==
[2024-06-29] VITALS (18 sets, daily range): BP systolic 107–139; BP diastolic 70–90; PULSE 64–100; RESP 16–27; TEMP 36.3–36.8; O2SAT 90–97; BMI 31.5
--- NOTE | 2024-06-29 09:05 | ECG_ITS ---
[facility] Date: 2024-[facility]-29 Pat Name: Farshad Christiansen Department: Room: Gender: Male [employer]: : 1950 Requested By: Christiano West Order Number: [id number] Ermelinda MD: Dayron Gupta M.D. Measurements Intervals Hope Rate: 101 P: 0 IL: 0 QRS: 29 QRSD: 112 T: -72 QT: 375 QTc: 486 Interpretive Statements ATRIAL FIBRILLATION WITH RAPID VENTRICULAR RESPONSE WITH ABERRANT CONDUCTION OR VENTRICULAR PREMATURE COMPLEXES INDETERMINATE AXIS PATTERN CONSISTENT WITH PULMONARY DISEASE INFERIOR MYOCARDIAL INFARCTION , OF INDETERMINATE AGE [40+ ms Q WAVE AND/OR ST/T ABNORMALITY IN II/aVF] Compared to ECG 05/14/2024 14:21:52 Indeterminate axis now present Myocardial infarct finding now present Electronically Signed On 06-30-2024 10:25:10 PHOTOGRAPHER FINISH by Dayron Gupta M.D. [id number]
--- NOTE | 2024-06-29 09:46 | XR_ITS ---
WS: [id number] Exam: XR chest 1V portable [id number] Date/Time of Exam: 06/29/2024 9:46 AM Reason For Exam: dyspnea/cough Small RIGHT perihilar infiltrate noted. Remaining lung barajas are clear. No pleural effusions. The he art is enlarged but unchanged in size. The mediastinum is normal in contour. Regional bony structures are intact. Monitoring leads superimpose the chest. XR/XR chest 1V portable [id number] IMPRESSION: 1. Small RIGHT perihilar infiltrate. 2. Cardiac enlargement unchanged.
[2024-06-29 09:52] LABS: Basophils # 0.1 10^3/uL (0.0-0.1); Basophils % 0.7 %; Eosinophils # 0.1 10^3/uL (0.0-0.8); Eosinophils % 0.9 %; Hematocrit 49.2 % (37-53); Lymphocytes # 0.8 10^3/uL (0.8-4.8); Lymphocytes % 10.1 %; Mean Corpuscular HGB Conc 32.7 g/dL (30-55); Mean Corpuscular Hemoglobin 32.2 pg (27-33); Mean Corpuscular Volume 98.4 fl (82-101); Mean Platelet Volume 10.5 fL (7.4-10.4); Monocytes # 0.4 10^3/uL (0.2-0.9); Monocytes % 4.9 %; Neutrophils # 6.75 10^3/uL (1.8-7.7); Neutrophils % 82.9 %; Nucleated Red Blood Cells % 0 %; Platelet Count 216 10^3/cmm (157-399); Red Cell Distribution Width 14.4 % (12.1-15.1); White Blood Count 8.14 10^3/uL (3.29-11.43)
[2024-06-29 10:06] LABS: INR 2.01 (0.8-1.2)
[2024-06-29] MEDS: aspirin 81 mg Chew Tablet 324 MG PO (10:07)
[2024-06-29 10:11] LABS: Troponin(5th) Baseline 69 ng/L (0-15)
[2024-06-29 10:20] LABS: Alanine Aminotransferase 18 U/L (0-41); Albumin Level 4.1 g/dL (3.5-5.2); Alkaline Phosphatase 53 U/L (40-130); Anion Gap 14.3 (5-19); Aspartate Amino Transferase 21 U/L (0-40); Blood Urea Nitrogen 28 mg/dL (8-23); Calcium 9.2 mg/dL (8.5-10.5); Carbon Dioxide 27 mmol/L (22-29); Chloride 101 mmol/L (98-107); Creatinine Clr Calc Pharmacy 71.8774; Globulin 2.7 g/dL (1.3-4.6); Glucose 128 mg/dL (65-115); NT Pro B Type Natriuretic Pept 7734 pg/mL (0-125); Osmolality Calculated 293 mOsm/kg (285-295); Potassium 4.3 mmol/L (3.5-5.1); Sodium 138 mmol/L (136-145); Total Protein 6.8 g/dL (6.6-8.7)
--- NOTE | 2024-06-29 11:41 | ED_ITS ---
HPI - SOB/Dyspnea 2 General: Chief Complaint: Shortness of Breath/Dyspnea Stated Complaint: SOB Time Seen by Provider: 06/29/24 09:43 History of Present Illness: HPI Narrative: 74-year-old male presents emergency room planing of increased shortness of breath patient has conversational dyspnea well or taking history. He denies any chest pain. It has been progressively worsening over the last 3 months especially last 2 months. Patient had a COVID 2 months ago. He states since then he has continually been short of breath. He has not been evaluated for PE since he had COVID. He did have a noted history of heart failure they recently decreased his carvedilol because of bradycardia Associated symptoms: Deny abdominal pain, chest pain or fever(s) Related Data Home Medications Medication Instructions Recorded Confirmed warfarin 1 mg tablet 1 mg PO DAILY 08/21/19 06/29/24 atorvastatin 40 mg tablet 40 mg PO DAILY 01/14/20 06/29/24 furosemide 40 mg tablet 40 mg PO DAILY 01/14/20 06/29/24 Previous Rx's Medication Instructions Recorded warfarin 3 mg tablet 3 mg PO DAILY #90 tabs 05/12/23 spironolactone 25 mg tablet 37.5 mg (1.5 x 25 mg) PO DAILY 07/12/23 #135 tabs warfarin 4 mg tablet 4 mg PO DAILY #90 tabs 08/02/23 carvedilol 6.25 mg tablet 6.25 mg PO BID #180 tabs 09/08/23 amlodipine 10 mg tablet 10 mg PO DAILY #90 tabs 12/22/23 enoxaparin 100 mg/mL subcutaneous 100 mg SUBCUT Q12H #12 mL 05/14/24 syringe (Lovenox) Allergies Allergy/AdvReac Type Severity Reaction Status Date / Time No Known Allergies Allergy Verified 05/14/24 13:26 Review of Systems 2 Const: Denies: fever(s) or chills Card: Denies: chest pain Resp: Reports: dyspnea GI: Denies: abdominal pain : Denies: dysuria, urinary frequency or urinary urgency Musc: Denies: neck pain or back pain Skin/Breast: Denies: rash PFSH ED 2 PFSH: Medical History CHF (congestive heart failure) Cardiomyopathy HTN (hypertension) Atrial fibrillation Surgical History S/P knee surgery Family History Sister Cancer Father Heart disease Other Hypertension Social History Smoking and tobacco/nicotine status: former use of tobacco/nicotine Physical Exam 2 Const: GENERAL APPEARANCE: cooperative ORIENTATION/CONSCIOUSNESS: Yes awake, Yes oriented to person, Yes oriented to place and Yes oriented to time HENMT: COMMON NORMALS: normocephalic, atraumatic and hearing grossly normal bilaterally HEAD & SCALP: normocephalic and atraumatic Resp: COMMON NORMALS: normal respiratory effort, No retractions and No use of accessory muscles AUSCULTATION: crackles Cardio: COMMON NORMALS: regular rate, regular rhythm and No murmurs present (Cardio) RATE: regular rate RHYTHM: regular rhythm GI: COMMON NORMALS: Soft to palpation and No hepatosplenomegaly present A USCULTATION: Yes normoactive bowel sounds PALPATION: Yes Soft to palpation, No Tenderness to palpation present (GI), No Guarding due to palpation present (GI) and Yes No hepatosplenomegaly present Extremity: COMMON NORMALS: normal to inspection, capillary refill normal and no calf tenderness GENERAL: Yes edema (Trace) Neuro: SENSORIUM/ORIENTATION: Yes oriented to person, Yes oriented to place and Yes oriented to time Skin: COMMON NORMALS: no rashes or lesions noted GENERAL SKIN EXAM: no rashes or lesions noted Course 2 Vital Signs: Vital signs: Vital Signs Temperature 97.5 F L 06/29/24 13:57 Pulse Rate 80 06/29/24 14:53 Respiratory Rate 16 06/29/24 14:53 Blood Pressure 132/90 06/29/24 13:57 Pulse Oximetry 93 06/29/24 14:53 Oxygen Delivery Me thod Room Air 06/29/24 14:53 MDM - SOB/Dyspnea Medical Decision Making Patient conversationally dyspneic with taking his history is reporting having severely diminished exercise capacity EKG does not show any acute troponin trending negative. No PE there is evidence of increased pulmonary vascular congestion. Patient given Lasix here will admit for decompensated heart failure. Discussed with hospitalist orders written Medical Records I reviewed the patient's medical records. Lab Data I reviewed the patient's lab results. 06/29/24 09:36 06/29/24 09:36 Labs/Radiology: Radiology Impressions Chest X-Ray 06/29/24 09:46 IMPRESSION: 1. Small RIGHT perihilar infiltrate. 2. Cardiac enlargement unchanged. Chest CTA 06/29/24 11:52 IMPRESSION: 1. Proximal main pulmonary arteries are normal. No evidence of pulmonary embolus. 2. Enlarging suspicious LEFT breast nodule with a few calcifications. This is increased in size since 2018 recommend further evaluation with LEFT breast diagnostic mammography and ultrasound. 3. Cardiomegaly. 4. Reflux into the hepatic veins suggestive of RIGHT heart dysfunction. 5. Small bilateral pleural effusions. 6. Diffuse hazy groundglass attenuation within both lungs with interstitial thickening can be seen with pulmonary edema or viral pneumonia Laboratory Results WBC 8.14 10^3/uL (3.29-11.43) 06/29/24 09:36 RBC 5.00 10^6/uL (3.85-5.65) 06/29/24 09:36 Hgb 16.10 g/dL (11.27-16.99) 06/29/24 09:36 Hct 49.2 % (37-53) 06/29/24 09:36 MCV 98.4 fl (82-101) 06/29/24 09:36 MCH 32.2 pg (27-33) 06/29/24 09:36 MCHC 32.7 g/dL (30-55) 06/29/24 09:36 RDW 14.4 % (12.1-15.1) 06/29/24 09:36 Plt Count 216 10^3/cmm (157-399) 06/29/24 09:36 MPV 10.5 fL (7.4-10.4) H 06/29/24 09:36 Neut % (Auto) 82.9 % 06/29/24 09:36 Lymph % (Auto) 10.1 % 06/29/24 09:36 Saunders % (Auto) 4.9 % 06/29/24 09:36 Eos % (Auto) 0.9 % 06/29/24 09:36 Baso % (Auto) 0.7 % 06/29/24 09:36 Neut # (Auto) 6.75 10^3/uL (1.8-7.7) 06/29/24 09:36 Lymph # (Auto) 0.8 10^3/uL (0.8-4.8) 06/29/24 09:36 Saunders # (Auto) 0.4 10^3/uL (0.2-0.9) 06/29/24 09:36 Eos # (Auto) 0.1 10^3/uL (0.0-0.8) 06/29/24 09:36 Baso # (Auto) 0.1 10^3/uL (0.0-0.1) 06/29/24 09:36 Nucleated RBC % (auto) 0 % 06/29/24 09:36 Nucleated RBCs # 0.0 /100WBC 06/29/24 09:36 PT 23.50 SECONDS (12.1-14.9) H 06/29/24 09:36 INR 2.01 (0.8-1.2) H 06/29/24 09:36 Sodium 138 mmol/L (136-145) 06/29/24 09:36 Potassium 4.3 mmol/L (3.5-5.1) 06/29/24 09:36 Chloride 101 mmol/L (98-107) 06/29/24 09:36 Carbon Dioxide 27 mmol/L (22-29) 06/29/24 09:36 Anion Gap 14.3 (5-19) 06/29/24 09:36 BUN 28 mg/dL (8-23) H 06/29/24 09:36 Creatinine 1.1 mg/dL (0.7-1.2) 06/29/24 09:36 GFR Calculation Not Reportable 06/29/24 09:36 Glucose 128 mg/dL (65-115) H 06/29/24 09:36 Estimat Average Glucose 131 06/29/24 09:36 Hemoglobin A1c 6.2 % (4.0-6.0) H 06/29/24 09:36 Calculated Osmolality 293 mOsm/kg (285-295) 06/29/24 09:36 Calcium 9.2 mg/dL (8.5-10.5) 06/29/24 09:36 Total Bilirubin 3.0 mg/dL (0.15-1.2) H 06/29/24 09:36 AST 21 U/L (0-40) 06/29/24 09:36 ALT 18 U/L (0-41) 06/29/24 09:36 Alkaline Phosphatase 53 U/L (40-130) 06/29/24 09:36 Troponin T Baseline 69 ng/L (0-15) H 06/29/24 09:36 Troponin T 120 Minute 54.94 ng/L (0-15) H 06/29/24 11:39 Delta Troponin T -14.06 ABS# (0-10) L 06/29/24 11:39 C-Reactive Protein 6.6 mg/L (0.0-4.9) H 06/29/24 09:36 NT-Pro-B Natriuret Pep 7734 pg/mL (0-125) H 06/29/24 09:36 Total Protein 6.8 g/dL (6.6-8.7) 06/29/24 09:36 Albumin 4.1 g/dL (3.5-5.2) 06/29/24 09:36 Globulin 2.7 g/dL (1.3-4.6) 06/29/24 09:36 Triglycerides 93 mg/dL (0-150) 06/29/24 09:36 Cholesterol 107 mg/dL (0-200) 06/29/24 09:36 LDL Cholesterol, Calc 56 mg/dL (50-129) 06/29/24 09:36 HDL Cholesterol 32 mg/dL (60-100) L 06/29/24 09:36 LDL/HDL Ratio 1.75 RATIO (0.00-3.22) 06/29/24 09:36 Cholesterol/HDL Ratio 3.34 mg/dL (1.0-5.00) 06/29/24 09:36 Procalcitonin 0.07 ng/mL (0-0.5) 06/29/24 09:36 TSH 1.70 uIU/mL (0.27-4.20) 06/29/24 09:36 Coronavirus (PCR) Negative (Negative) 06/29/24 12:34 Influenza A (PCR) Negative (Negative) 06/29/24 12:34 Influenza Type B (PCR) Negative (Negative) 06/29/24 12:34 RSV (PCR) Negative (Negative) 06/29/24 12:34 All radiology interpretation(s) finalized by discharge Discharge Plan Discharge Patient Disposition: Admitted As Inpatient Admit Provider: Michael Davis Clinical Impression: CHF exacerbation Atrial fibrillation Qualifiers: Atrial fibrillation type: paroxysmal Qualified Code(s): I48.0 - Paroxysmal atrial fibrillation Condition: Stable Coding Level of Care Code ED Painter And Decorator Apprentice for Rekha Brown
--- NOTE | 2024-06-29 11:46 | ECG_ITS ---
[facility] Test Date: 2024-06-29 Pat Name: Farshad Christiansen Department: Room: Gender: Male [employer]der [employer]: : 1950 Requested By: Christiano West Order Number: [id number] Ermelinda MD: Dayron Gupta M.D. Measurements Intervals [place] Rate: 97 P: 0 SC: 0 QRS: 85 QRSD: 98 T: 0 QT: 173 QTc: 220 Interpretive Statements SUPRAVENTRICULAR RHYTHM SEPTAL MYOCARDIAL INFARCTION , PROBABLY OLD [40+ ms Q WAVE IN V1/V2] Compared to ECG 06/29/2024 09:09:10 Supraventricular rhythm now present ST (T wave) deviation now present Ventricular premature complex(es) no longer present Aberrant conduction of supraventricular beat(s) no longer present Indeterminate axis no longer present Electronically Signed On 06-30-2024 10:35:57 UNIVERSITY DEMONSTRATOR by Dayron Gupta M.D. [email or web address]
--- NOTE | 2024-06-29 11:52 | CT_ITS ---
WS: [id number] CTA OF THE CHEST WITH PULMONARY EMBOLISM PROTOCOL TECHNIQUE: High-resolution contrast enhanced CTA of the chest with coronal and sagittal reformatted i mages with pulmonary embolism protocol. MIP images are also reviewed. CLINICAL INFORMATION: Dyspnea recent COVID COMPARISON: None. DLP: 593.[address] scans at [facility] use at least one of these dose optimization techniques: automated e xposure control; mA and/or kV adjustment per patient size (includes targeted exams where dose is matc hed to clinical indication); or iterative reconstruction. FINDINGS: Proximal main pulmonary arteries are normal. Normal segmental and subsegmental pulmonary ar teries. No evidence of pulmonary embolus. Small bilateral pleural effusions. Diffuse hazy groundglass attenuation in both lungs with interstitial thickening. Bilateral adrenal nodules likely small adenomas. Low-attenuation lesion in the liver dome likely smal l hepatic cyst. Cholecystectomy clips. Small esophageal hiatal hernia. Tiny pericardial effusion. Enlarging suspicious LEFT breast nodule measuring 2.6 x 1.7 cm. With a few calcifications. This is in creased in size since 2018 recommend further evaluation with LEFT breast diagnostic mammography and u ltrasound. CT/CT angio chest PE protcl [id number] IMPRESSION: 1. Proximal main pulmonary arteries are normal. No evidence of pulmonary embol us. 2. Enlarging suspicious LEFT breast nodule with a few calcifications. This is increased in size since 2018 recommend further evaluation with LEFT breast diag nostic mammography and ultrasound. 3. Cardiomegaly. 4. Reflux into the hepatic veins suggestive of RIGHT heart dysfunction. 5. Small bilateral pleural effusions. 6. Diffuse hazy groundglass attenuation within both lungs with interstitial th ickening can be seen with pulmonary edema or viral pneumonia
[2024-06-29 12:14] LABS: Troponin 5 2HR 54.94 ng/L (0-15)
[2024-06-29 12:15] LABS: Troponin 5 2HR Delta -14.06 ABS# (0-10)
[2024-06-29] MEDS: iohexol 350 mg/mL 500 mL Btl (per mL) IV (12:15)
[2024-06-29] MEDS: morphine 4 mg/mL SDV 1 mL 2 MG IVP ×2 (13:04→20:42)
[2024-06-29 13:21] LABS: Covid PCR NEGATIVE (Negative); Influenza A NEGATIVE (Negative); Influenza B NEGATIVE (Negative); Respiratory Syncytial Virus Ce NEGATIVE (Negative)
[2024-06-29 14:12] LABS: Bilirubin Urine Negative (Negative); Blood Urine Negative (Negative); Glucose Urine UA Negative (Normal); Ketones Urine Trace (Negative); Leukocyte Esterase Urine Negative (Negative); Nitrate Urine Negative (Negative); Protein Urine 2+ (Negative); Urine Appearance Clear (CLEAR); Urine Color Yellow (Yellow); pH Urine 5.5 (5-7)
[2024-06-29 14:17] LABS: Add Urine Microscopic? YES; Bacteria Urine None Seen /hpf; RBC Urine 0-2 /hpf (0-2); Squamous Epithelial Cell Urine 0-5 /hpf (0-5); WBC Urine 0-5 /hpf (0-5)
--- NOTE | 2024-06-29 14:20 | P.HP_ITS ---
Providers/Chief Complaint 2 Admitting Physician: Michael Davis MD Primary Care Provider: Enedina Peters MD Chief Complaint: SOB History of Present Illness Farshad Christiansen is a 74 year old male with a past medical history of CHF, atrial fibrillation, hypertension, who presents [facility] for shortness of breath. Patient reports that recently he had cataract surgery, who his Coumadin was held, and he was transition to therapeutic Lovenox, he is back on Coumadin. He tells me for the last few weeks he has had increased shortness of breath, increased shortness of breath with exertion now at rest, does report orthopnea, overall paroxysmal nocturnal dyspnea, no chest pain, no palpitations, no nausea, no vomiting, does report abdominal bloating, Review of Systems 2 Const: Denies: fever(s) Card: Reports: dyspnea on exertion; Denies: swelling of feet/ankles Resp: Reports: dyspnea GI: Denies: abdominal pain Neuro: Denies: headache(s) Medications/Allergies Home Medications Medication Instructions Recorded Confirmed Last Taken Type warfarin 1 mg tablet 1 mg PO DAILY 08/21/19 06/29/24 Unknown History atorvastatin 40 mg tablet 40 mg PO DAILY 01/14/20 06/29/24 06/28/24 History furosemide 40 mg tablet 40 mg PO DAILY 01/14/20 06/29/24 06/29/24 History warfarin 3 mg tablet 3 mg PO DAILY #90 tabs 05/12/23 06/29/24 Unknown Rx spironolactone 25 mg tablet 37.5 mg (1.5 x 25 mg) PO DAILY 07/12/23 06/29/24 06/29/24 Rx #135 tabs warfarin 4 mg tablet 4 mg PO DAILY #90 tabs 08/02/23 06/29/24 Unknown Rx carvedilol 6.25 mg tablet 6.25 mg PO BID #180 tabs 09/08/23 06/29/24 06/28/24 Rx amlodipine 10 mg tablet 10 mg PO DAILY #90 tabs 12/22/23 06/29/24 06/28/24 Rx enoxaparin 100 mg/mL subcutaneous 100 mg SUBCUT Q12H #12 mL 05/14/24 06/29/24 Unknown Rx syringe (Lovenox) Allergies Allergy/AdvReac Type Severity Reaction Status Date / Time No Known Allergies Allergy Verified 05/14/24 13:26 PFSH Acute 2 PFSH: Medical History CHF (congestive heart failure) Cardiomyopathy HTN (hypertension) Atrial fibrillation Surgical History S/P knee surgery Family History Sister Cancer Father Heart disease Other Hypertension Social History Smoking and tobacco/nicotine status: former use of tobacco/nicotine Vitals/I&O/Wt Last Vital Signs Temp 97.5 F L 06/29/24 13:57 Pulse 82 06/29/24 13:57 Resp 27 H 06/29/24 13:57 BP 132/90 06/29/24 13:57 Pulse Ox 92 06/29/24 13:57 O2 Del Method Room Air 06/29/24 13:57 Weight last 48 hrs Weight 99.79 kg Physical Exam 2 Const: COMMON NORMALS: no acute distress and patient oriented x3 HENMT: COMMON NORMALS: normocephalic HEAD & SCALP: normocephalic Eye: COMMON NORMALS: Equal, round and reactive pupils present and EOMs intact bilaterally Neck/C-Spine: COMMON NORMALS: no JVD Resp: COMMON NORMALS: normal respiratory effort, No retractions and No use of accessory muscles AUSCULTATION: crackles Cardio: COMMON NORMALS: regular rate, regular rhythm, S1 normal heart sound present and S2 normal heart sound present RATE: regular rate RHYTHM: r egular rhythm HEART SOUNDS: S1 normal heart sound present and S2 normal heart sound present GI: COMMON NORMALS: Normal to inspection, nondistended, normoactive bowel sounds present, Soft to palpation and non-tender Extremity: COMMON NORMALS: no calf tenderness and no pedal edema Neuro: COMMON NORMALS: patient oriented x3, CN's II-XII intact bilaterally and moves all extremities Psych: COMMON NORMALS: mental status grossly normal Data 06/29/24 09:36 06/29/24 09:36 A&P Assessment and plan (1) CHF exacerbation: (2) NSTEMI (non-ST elevated myocardial infarction): Plan CHF exacerbation -Fluid restrictions at 1000 cc -Lasix 40 mg IV twice daily -Creatinine monitor potassium -Monitor respiratory status closely NSTEMI -Recent echocardiogram CONCLUSIONS Moderately increased left ventricular cavity size. Severely decreased left ventricular systolic function. Left ventricular ejection fraction is estimated at 25 %. There appeared to be anterior anteroseptal and apical wall hypokinesis there appeared to be lateral wall akinesis.Grade II/IV diastolic dysfunction, moderately elevated filling pressures. Moderately thickened mitral valve. No mitral valve stenosis. Severe mitral valve regurgitation. Moderate aortic valve calcification. No aortic valve stenosis. Mild aortic valve regurgitation. There is no pericardial effusion. Pulmonary artery systolic pressure is within normal limits. Right atrial pressure is around 10 mm of mercury. -No complaints of active chest pain Plan -Serial EKGs, serial troponins, telemetry monitoring -Continue aspirin, statin -Hold Coumadin, switch to therapeutic Lovenox -Cardiology consulted -Full code -Lovenox for DVT prophylaxis Spoke to patient, spoke to ER physician, spoke to cardiology Attestations 2 Medical Necessity Statement*: Patient requires hospitalization for CHF exacerbation, NSTEMI, inpatient, greater than 2 midnights Diagnoses CHF exacerbation I50.9 NSTEMI (non-ST elevated myocardial infarction) I21.4
[2024-06-29 14:24] LABS: Estmated Average Glucose 131; Hemoglobin A1C 6.2 % (4.0-6.0)
[2024-06-29 14:27] LABS: Specific Gravity, Urine 1.069 (1.005-1.030)
[2024-06-29 14:35] LABS: Procalcitonin 0.07 ng/mL (0-0.5)
--- NOTE | 2024-06-29 14:40 | ECG_ITS ---
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 Measurements Intervals [place] Rate: 99 P: 0 [place]: 0 QRS: 100 QRSD: 174 T: 267 QT: 391 QTc: 502 Interpretive Statements UNCERTAIN IRREGULAR RHYTHM INTRAVENTRICULAR CONDUCTION DELAY [130+ ms QRS DURATION] POSSIBLE RIGHT VENTRICULAR HYPERTROPHY [SOME/ALL OF: PROMINENT R IN V1, LATE TRANSITION, RAD, XUAN, SSS] SEPTAL MYOCARDIAL INFARCTION , OF INDETERMINATE AGE [40+ ms Q WAVE IN V1/V2] LATERAL MYOCARDIAL INFARCTION , OF INDETERMINATE AGE [40+ ms Q WAVE AND/OR ST/T ABNORMALITY IN I/aVL/V5/V6] Compared to ECG 06/29/2024 12:00:23 Intraventricular conduction delay now present Supraventricular rhythm no longer present ST (T wave) deviation no longer present Myocardial infarct finding still present Electronically Signed On 06-30-2024 10:22:31 DIRECTOR OF ASSESSMENT by Dayron Gupta M.D. [email or web address]
[2024-06-29 14:46] LABS: C Reactive Protein 6.6 mg/L (0.0-4.9); Chol HDL Ratio 3.34 mg/dL (1.0-5.00); Cholesterol 107 mg/dL (0-200); HDL Cholesterol 32 mg/dL (60-100); LDL Cholesterol Calculated 56 mg/dL (50-129); LDL HDL Ratio 1.75 RATIO (0.00-3.22); Triglycerides 93 mg/dL (0-150)
[2024-06-29] MEDS: ipratropium-albuterol 3 mL Neb INHALATION (14:54)
[2024-06-29] MEDS: pantoprazole 40 mg SDV IVP (15:19)
[2024-06-29] MEDS: warfarin 3 mg Tablet PO (15:20)
[2024-06-29] MEDS: FUROsemide 10 mg/mL SDV 4mL 40 MG IVP (15:20)
[2024-06-29 15:49] LABS: Troponin 5 6HR 56.75 ng/L (0-15); Troponin 5 6HR Delta -12.25 ng/L (0-12)
[2024-06-29] MEDS: acetaminophen 325 mg Tablet 650 MG PO (18:30)
[2024-06-29] MEDS: enoxaparin 100 mg/mL Syringe SUBCUT (20:22)
[2024-06-30] VITALS (12 sets, daily range): BP systolic 90–134; BP diastolic 72–97; PULSE 78–102; RESP 16–33; TEMP 36.5–36.7; O2SAT 93–98
[2024-06-30] MEDS: FUROsemide 10 mg/mL SDV 4mL 40 MG IVP (02:32)
[2024-06-30 04:22] LABS: Basophils # 0.1 10^3/uL (0.0-0.1); Basophils % 1.2 %; Eosinophils # 0.1 10^3/uL (0.0-0.8); Eosinophils % 1.6 %; Hematocrit 47.3 % (37-53); Lymphocytes % 12.8 %; Mean Corpuscular HGB Conc 32.6 g/dL (30-55); Mean Corpuscular Hemoglobin 32.6 pg (27-33); Mean Corpuscular Volume 100.2 fl (82-101); Mean Platelet Volume 10.6 fL (7.4-10.4); Monocytes # 0.7 10^3/uL (0.2-0.9); Monocytes % 9.3 %; Neutrophils # 5.61 10^3/uL (1.8-7.7); Neutrophils % 74.8 %; Nucleated Red Blood Cells % 0 %; Platelet Count 205 10^3/cmm (157-399); Red Blood Count 4.72 10^6/uL (3.85-5.65); Red Cell Distribution Width 14.6 % (12.1-15.1)
[2024-06-30 04:27] LABS: Anion Gap 13.3 (5-19); Blood Urea Nitrogen 26 mg/dL (8-23); Calcium 8.9 mg/dL (8.5-10.5); Carbon Dioxide 30 mmol/L (22-29); Chloride 99 mmol/L (98-107); Creatinine Clr Calc Pharmacy 60.8193; Glucose 114 mg/dL (65-115); Magnesium 2.1 mg/dL (1.7-2.3); NT Pro B Type Natriuretic Pept 8169 pg/mL (0-125); Osmolality Calculated 292 mOsm/kg (285-295); Phosphorus 4.4 mg/dL (2.5-4.5); Potassium 4.3 mmol/L (3.5-5.1); Sodium 138 mmol/L (136-145)
[2024-06-30 04:42] LABS: INR 2.53 (0.8-1.2)
[2024-06-30] MEDS: spironolactone 25 mg Tablet 37.5 MG PO (08:16)
[2024-06-30] MEDS: acetaminophen 325 mg Tablet 650 MG PO ×2 (08:16→17:02)
[2024-06-30] MEDS: atorvastatin 40 mg Tablet PO (08:16)
[2024-06-30] MEDS: aspirin 81 mg EC Tablet PO (08:16)
[2024-06-30] MEDS: enoxaparin 100 mg/mL Syringe SUBCUT (08:17)
--- NOTE | 2024-06-30 09:15 | P.CONIM_ITS ---
Providers/Reason For Consult 2 Consulting Physician/Specialty*: Dayron Gupta MD/ Cardiology Reason for Consult*: Congestive heart failure/ Troponin elevation Requesting Physician: Dr Davis Attending Physician: Michael Davis MD Primary Care Provider: Enedina Peters MD History of Present Illness History of Present Illness Farshad Christiansen is a 74 year old male with past medical history of atrial fibrillation, congestive heart failure who presented to hospital with worsening shortness of breath for few weeks. Also has orthopnea. Was found to have CHF exacerbation. Recent echo which showed EF of 25% with regional wall motion abnormalities mainly in the LAD territory. He is on Coumadin. It was held today. Initial troponin was elevated at 69 and has trended down since. EKG has non specific ST T wave changes. Review of Systems 2 Const: Denies: fever(s) Card: Reports: dyspnea on exertion; Denies: swelling of feet/ankles Resp: Reports: dyspnea GI: Denies: abdominal pain Neuro: Denies: headache(s) Medications/Allergies Home Medications Medication Instructions Recorded Confirmed Last Taken Type warfarin 1 mg tablet 1 mg PO DAILY 08/21/19 06/29/24 Unknown History atorvastatin 40 mg tablet 40 mg PO DAILY 01/14/20 06/29/24 06/28/24 History furosemide 40 mg tablet 40 mg PO DAILY 01/14/20 06/29/24 06/29/24 History warfarin 3 mg tablet 3 mg PO DAILY #90 tabs 05/12/23 06/29/24 Unknown Rx spironolactone 25 mg tablet 37.5 mg (1.5 x 25 mg) PO DAILY 07/12/23 06/29/24 06/29/24 Rx #135 tabs warfarin 4 mg tablet 4 mg PO DAILY #90 tabs 08/02/23 06/29/24 Unknown Rx carvedilol 6.25 mg tablet 6.25 mg PO BID #180 tabs 09/08/23 06/29/24 06/28/24 Rx amlodipine 10 mg tablet 10 mg PO DAILY #90 tabs 12/22/23 06/29/24 06/28/24 Rx enoxaparin 100 mg/mL subcutaneous 100 mg SUBCUT Q12H #12 mL 05/14/24 06/29/24 Unknown Rx syringe (Lovenox) Allergies Allergy/AdvReac Type Severity Reaction Status Date / Time No Known Allergies Allergy Verified 05/14/24 13:26 Current Medications Generic Name Dose Route Start Last Admin Trade Name Freq PRN Reason Stop Dose Admin Acetaminophen 650 mg 06/29/24 13:56 06/30/24 08:16 Acetaminophen 325 Mg Tablet PO 650 mg Q6H PRN Administration Mild/Mod Pain Or Temp >/= 101 Albuterol/Ipratropium 3 ml 06/29/24 14:44 06/29/24 14:54 Ipratropium-Albuterol 3 Ml Neb INHALATION 3 ml Q6H PRN Administration SHORTNESS OF BREATH Aspirin 81 mg 06/30/24 09:00 06/30/24 08:16 Aspirin 81 Mg Ec Tablet PO 81 mg DAILY KRZYSZTOF Administration Atorvastatin Calcium 40 mg 06/30/24 09:00 06/30/24 08:16 Atorvastatin 40 Mg Tablet PO 40 mg DAILY KRZYSZTOF Administration Furosemide 40 mg 06/29/24 14:00 06/30/24 02:32 Furosemide 10 Mg/Ml Sdv 4ml IVP 40 mg Q12H KRZYSZTOF Administration Morphine Sulfate 2 mg 06/29/24 13:56 06/29/24 20:42 Morphine 4 Mg/Ml Sdv 1 Ml IVP 2 mg Q4H PRN Administration SEVERE PAIN Pantoprazole Sodium 40 mg 06/29/24 14:00 06/29/24 15:19 Pantoprazole 40 Mg Sdv IVP 40 mg Q24H KRZYSZTOF Administration Spironolactone 37.5 mg 06/30/24 09:00 06/30/24 08:16 Spironolactone 25 Mg Tablet PO 37.5 mg DAILY KRZYSZTOF Administration PFSH Acute 2 PFSH: Medical History CHF (congestive heart failure) Cardiomyopathy HTN (hypertension) Atrial fibrillation Surgical History S/P knee surgery Family History Sister Cancer Father Heart disease Other Hypertension Social History Smoking and tobacco/nicotine status: former use of tobacco/nicotine Vitals/I&O/Wt Last Vital Signs Temp 97.9 F 06/30/24 07:10 Pulse 89 06/30/24 07:10 Resp 23 H 06/30/24 07:10 BP 118/97 06/30/24 07:10 Pulse Ox 98 06/30/24 07:10 O2 Del Method Nasal Cannula 06/30/24 07:10 06/29/24 06/30/24 06/30/24 22:59 06:59 14:59 Intake Total 400 / 400 360 / 360 Output Total 200 / 200 Balance 200 / 200 360 / 360 Weight last 48 hrs Weight 220 lb Weight 220 lb Weight 220 lb Physical Exam 2 Narrative: GENERAL: Patient is alert, awake and oriented x3. [] NECK: No jugular vein distension. [] HEENT: No cyanosis. No icterus. No pallor. [] HEART: Regular S1 and S2. No murmur, rub or gallop. [] LUNGS:Diminished air entry CENTRAL NERVOUS SYSTEM: Grossly nonfocal. [] EXTREMITIES: Lower extremities with 1+ edema bilaterally. Data 07/01/24 02:28 07/01/24 02:28 A&P Assessment and plan (1) Atrial fibrillation: Qualifiers: Atrial fibrillation type: paroxysmal Qualified Code(s): I48.0 - Paroxysmal atrial fibrillation (2) Chronic anticoagulation: (3) CHF exacerbation: (4) Troponin level elevated: Plan Patient has presented with CHF exacerbation. Recent echo shows regional wall motion abnormalities mainly in LAD territory. Troponins were elevated however did not trend up significantly. Recommend coronary angiogram to assess ischemic cause of CHF exacerbation given regional wall motion abnormalities and troponin elevation. Continue IV diuresis. Close I&O's. Monitor renal function. Hold Coumadin. Can switch to Lovenox once INR is less than 2. Thank you for involving us with care of this patient. We will continue to follow. Please call with questions. Consult Attestations 2 Medical Necessity Statement: Care expected to cross 2 midnights. Coding Level of Care Code Acute Code for Chg Fwd Diagnoses Paroxysmal atrial fibrillation I48.0 Atrial fibrillation type: paroxysmal Chronic anticoagulation Z79.01 CHF exacerbation I50.9 Troponin level elevated R79.89
[2024-06-30] MEDS: morphine 4 mg/mL SDV 1 mL 2 MG IVP ×2 (10:19→19:47)
--- NOTE | 2024-06-30 14:02 | PC.NURSE ---
Provider is updated that patient did have a nose bleed that lasted about 5 minutes. The nose bleed was from his right nares and we easily stopped. Patient is in no distress.
[2024-06-30] MEDS: pantoprazole 40 mg SDV IVP (14:13)
--- NOTE | 2024-06-30 14:13 | P.PN_ITS ---
Subjective 2 Subjective: Patient was seen this morning, his shortness of breath is improving, denies any fevers, no chills, no cough Vitals/I&O/Wt Last Vital Signs Temp 98.1 F 06/30/24 11:21 Pulse 85 06/30/24 11:21 Resp 22 H 06/30/24 11:21 BP 90/72 06/30/24 11:21 Pulse Ox 94 06/30/24 11:21 O2 Del Method Nasal Cannula 06/30/24 11:21 06/29/24 06/30/24 06/30/24 22:59 06:59 14:59 Intake Total 400 / 400 360 / 360 Output Total 200 / 200 Balance 200 / 200 360 / 360 Weight last 48 hrs Weight 99.79 kg Weight 99.79 kg Weight 99.79 kg Physical Exam 2 Const: COMMON NORMALS: no acute distress and patient oriented x3 Resp: COMMON NORMALS: normal respiratory effort, No retractions and No use of accessory muscles AUSCULTATION: crackles Cardio: COMMON NORMALS: regular rate, regular rhythm, S1 normal heart sound present and S2 normal heart sound present RATE: regular rate RHYTHM: r egular rhythm HEART SOUNDS: S1 normal heart sound present and S2 normal heart sound present GI: COMMON NORMALS: Normal to inspection, nondistended, normoactive bowel sounds present and non-tender Extremity: COMMON NORMALS: no pedal edema Neuro: COMMON NORMALS: patient oriented x3 Psych: COMMON NORMALS: mental status grossly normal Data 06/30/24 03:45 06/30/24 03:45 A&P Assessment and plan (1) CHF exacerbation: (2) NSTEMI (non-ST elevated myocardial infarction): Plan CHF exacerbation -Fluid restrictions at 1000 cc -Lasix 40 mg IV twice daily -Creatinine monitor potassium -Monitor respiratory status closely NSTEMI -Recent echocardiogram CONCLUSIONS Moderately increased left ventricular cavity size. Severely decreased left ventricular systolic function. Left ventricular ejection fraction is estimated at 25 %. There appeared to be anterior anteroseptal and apical wall hypokinesis there appeared to be lateral wall akinesis.Grade II/IV diastolic dysfunction, moderately elevated filling pressures. Moderately thickened mitral valve. No mitral valve stenosis. Severe mitral valve regurgitation. Moderate aortic valve calcification. No aortic valve stenosis. Mild aortic valve regurgitation. There is no pericardial effusion. Pulmonary artery systolic pressure is within normal limits. Right atrial pressure is around 10 mm of mercury. -No complaints of active chest pain Plan -Serial EKGs, serial troponins, telemetry monitoring -Continue aspirin, statin -Hold Coumadin, switch to therapeutic Lovenox, once INR drops below 2 currently 2.53 -Cardiology consulted -Full code -Lovenox for DVT prophylaxis Spoke to cardiology Attestations 2 Medical Necessity Statement*: Patient requires hospitalization for CHF exacerbation Diagnoses CHF exacerbation I50.9 NSTEMI (non-ST elevated myocardial infarction) I21.4
[2024-07-01] VITALS (12 sets, daily range): BP systolic 98–154; BP diastolic 79–95; PULSE 88–107; RESP 16–29; TEMP 36.4–36.8; O2SAT 90–98
--- NOTE | 2024-07-01 02:08 | PC.NURSE ---
Patient stated that he was having trouble sleeping and would like something to help him sleep. Dr Richards notified and new orders placed
[2024-07-01] MEDS: diphenhydrAMINE 25 mg Capsule PO (02:16)
[2024-07-01 03:38] LABS: Basophils # 0.1 10^3/uL (0.0-0.1); Eosinophils # 0.2 10^3/uL (0.0-0.8); Hematocrit 45.4 % (37-53); Lymphocytes # 1.1 10^3/uL (0.8-4.8); Lymphocytes % 14.3 %; Mean Corpuscular Hemoglobin 32.6 pg (27-33); Mean Corpuscular Volume 98.7 fl (82-101); Mean Platelet Volume 11.2 fL (7.4-10.4); Monocytes # 0.6 10^3/uL (0.2-0.9); Monocytes % 7.6 %; Neutrophils # 5.48 10^3/uL (1.8-7.7); Neutrophils % 74.7 %; Nucleated Red Blood Cells % 0 %; Platelet Count 174 10^3/cmm (157-399); Red Cell Distribution Width 14.4 % (12.1-15.1); White Blood Count 7.34 10^3/uL (3.29-11.43)
[2024-07-01 03:44] LABS: INR 2.66 (0.8-1.2)
[2024-07-01 03:57] LABS: Anion Gap 13.9 (5-19); Blood Urea Nitrogen 21 mg/dL (8-23); Calcium 9.2 mg/dL (8.5-10.5); Carbon Dioxide 28 mmol/L (22-29); Chloride 99 mmol/L (98-107); Creatinine Clr Calc Pharmacy 71.8774; Glucose 117 mg/dL (65-115); Osmolality Calculated 288 mOsm/kg (285-295); Phosphorus 3.7 mg/dL (2.5-4.5); Potassium 3.9 mmol/L (3.5-5.1); Sodium 137 mmol/L (136-145)
[2024-07-01 04:06] LABS: NT Pro B Type Natriuretic Pept 6610 pg/mL (0-125)
[2024-07-01] MEDS: acetaminophen 325 mg Tablet 650 MG PO ×2 (07:22→20:25)
--- NOTE | 2024-07-01 08:06 | P.PN_ITS ---
Subjective 2 Subjective: Patient is feeling better. Has some shortness of breath. Vitals/I&O/Wt Last Vital Signs Temp 97.9 F 07/01/24 07:04 Pulse 102 H 07/01/24 07:04 Resp 24 H 07/01/24 07:04 BP 135/91 07/01/24 07:04 Pulse Ox 94 07/01/24 07:04 O2 Del Method Nasal Cannula 07/01/24 07:04 06/30/24 07/01/24 07/01/24 22:59 06:59 14:59 Intake Total 480 / 1200 Balance 480 / 1200 Weight last 48 hrs Weight 220 lb Weight 220 lb Weight 220 lb Weight 220 lb Physical Exam 2 Narrative: GENERAL: Patient is alert, awake and oriented x3. [] NECK: No jugular vein distension. [] HEENT: No cyanosis. No icterus. No pallor. [] HEART: Regular S1 and S2. No murmur, rub or gallop. [] LUNGS:Diminished air entry CENTRAL NERVOUS SYSTEM: Grossly nonfocal. [] EXTREMITIES: Lower extremities with 1+ edema bilaterally. Data 07/02/24 03:07 07/02/24 03:07 A&P Assessment and plan (1) Atrial fibrillation: Qualifiers: Atrial fibrillation type: paroxysmal Qualified Code(s): I48.0 - Paroxysmal atrial fibrillation (2) Chronic anticoagulation: (3) CHF exacerbation: (4) Troponin level elevated: Plan Patient has presented with CHF exacerbation. Recent echo shows regional wall motion abnormalities mainly in LAD territory. Troponins were elevated however did not trend up significantly. Continue lasix. Close I and Os. Monitor renal function. Plan for coronary angiogram once INR is less than 2. It is still elevated. Continue holding Coumadin. Based on level tomorrow, can decide if angiogram can be performed tomorrow. Thank you for involving us with care of this patient. We will continue to follow. Please call with questions. Attestations 2 Medical Necessity Statement*: Care expected to cross 2 midnights. Coding Level of Care Code Acute Code for Chg Fwd Diagnoses Paroxysmal atrial fibrillation I48.0 Atrial fibrillation type: paroxysmal Chronic anticoagulation Z79.01 CHF exacerbation I50.9 Troponin level elevated R79.89
[2024-07-01] MEDS: spironolactone 25 mg Tablet 37.5 MG PO (08:25)
[2024-07-01] MEDS: atorvastatin 40 mg Tablet PO (08:26)
--- NOTE | 2024-07-01 08:43 | PC.NURSE ---
Patient dropped 0900 aspirin on the floor this morning when attemping to take them. This was wasted in the pyxsis and a new pill is pulled.
[2024-07-01] MEDS: aspirin 81 mg EC Tablet PO (09:19)
[2024-07-01] MEDS: FUROsemide 10 mg/mL SDV 4mL 40 MG IVP (09:19)
[2024-07-01] MEDS: ipratropium-albuterol 3 mL Neb INHALATION (09:55)
[2024-07-01] MEDS: morphine 4 mg/mL SDV 1 mL 2 MG IVP ×2 (11:44→21:17)
--- NOTE | 2024-07-01 14:49 | P.PN_ITS ---
Vitals/I&O/Wt Last Vital Signs Temp 97.6 F 07/01/24 11:16 Pulse 89 07/01/24 11:41 Resp 16 07/01/24 11:44 BP 136/93 07/01/24 11:41 Pulse Ox 98 07/01/24 11:44 O2 Del Method Room Air 07/01/24 11:16 06/30/24 07/01/24 07/01/24 22:59 06:59 14:59 Intake Total 480 / 1200 720 / 720 Balance 480 / 1200 720 / 720 Weight last 48 hrs Weight 99.79 kg Weight 99.79 kg Weight 99.79 kg Physical Exam 2 Const: COMMON NORMALS: no acute distress and patient oriented x3 Resp: COMMON NORMALS: normal respiratory effort, No retractions, No use of accessory muscles and clear to auscultation bilaterally AUSCULTATION: clear to auscultation bilaterally Cardio: COMMON NORMALS: regular rate, regular rhythm, S1 normal heart sound present and S2 normal heart sound present RATE: regular rate RHYTHM: r egular rhythm HEART SOUNDS: S1 normal heart sound present and S2 normal heart sound present GI: COMMON NORMALS: Normal to inspection, nondistended, normoactive bowel sounds present and non-tender Extremity: COMMON NORMALS: no calf tenderness and no pedal edema Neuro: COMMON NORMALS: patient oriented x3 Psych: COMMON NORMALS: mental status grossly normal Data 07/01/24 02:28 07/01/24 02:28 A&P Assessment and plan (1) CHF exacerbation: (2) NSTEMI (non-ST elevated myocardial infarction): Plan CHF exacerbation -Fluid restrictions at 1000 cc -Lasix 40 mg IV once -Creatinine monitor potassium -Monitor respiratory status closely NSTEMI -Recent echocardiogram CONCLUSIONS Moderately increased left ventricular cavity size. Severely decreased left ventricular systolic function. Left ventricular ejection fraction is estimated at 25 %. There appeared to be anterior anteroseptal and apical wall hypokinesis there appeared to be lateral wall akinesis.Grade II/IV diastolic dysfunction, moderately elevated filling pressures. Moderately thickened mitral valve. No mitral valve stenosis. Severe mitral valve regurgitation. Moderate aortic valve calcification. No aortic valve stenosis. Mild aortic valve regurgitation. There is no pericardial effusion. Pulmonary artery systolic pressure is within normal limits. Right atrial pressure is around 10 mm of mercury. -No complaints of active chest pain Plan -Serial EKGs, serial troponins, telemetry monitoring -Continue aspirin, statin -Hold Coumadin, switch to therapeutic Lovenox, once INR drops below 2 currently 2.66 -Cardiology consulted -Full code -INR 2.66 DVT prophylaxis Spoke to cardiology Attestations 2 Medical Necessity Statement*: Patient requires hospital for CHF Exacerbation, NSTEMI Diagnoses CHF exacerbation I50.9 NSTEMI (non-ST elevated myocardial infarction) I21.4
[2024-07-01] MEDS: pantoprazole 40 mg SDV IVP (15:06)
--- NOTE | 2024-07-01 17:04 | PC.NURSE ---
Patient ambulated in hallway this afternoon with by his side. Vital remained stable.
[2024-07-02] VITALS (10 sets, daily range): BP systolic 95–141; BP diastolic 59–96; PULSE 78–93; RESP 17–28; TEMP 36.4–37.1; O2SAT 92–97
[2024-07-02 04:34] LABS: Basophils # 0.1 10^3/uL (0.0-0.1); Eosinophils # 0.1 10^3/uL (0.0-0.8); Eosinophils % 1.7 %; Hematocrit 44.2 % (37-53); Lymphocytes # 1.1 10^3/uL (0.8-4.8); Lymphocytes % 17.2 %; Mean Corpuscular Hemoglobin 32.1 pg (27-33); Mean Corpuscular Volume 97.1 fl (82-101); Mean Platelet Volume 11.2 fL (7.4-10.4); Monocytes # 0.6 10^3/uL (0.2-0.9); Monocytes % 9.4 %; Neutrophils # 4.43 10^3/uL (1.8-7.7); Neutrophils % 70.4 %; Nucleated Red Blood Cells % 0 %; Platelet Count 167 10^3/cmm (157-399); Red Blood Count 4.55 10^6/uL (3.85-5.65); Red Cell Distribution Width 14.3 % (12.1-15.1); White Blood Count 6.29 10^3/uL (3.29-11.43)
[2024-07-02 04:40] LABS: INR 2.25 (0.8-1.2)
[2024-07-02 04:52] LABS: Anion Gap 13.9 (5-19); Blood Urea Nitrogen 19 mg/dL (8-23); Calcium 9.2 mg/dL (8.5-10.5); Carbon Dioxide 28 mmol/L (22-29); Chloride 96 mmol/L (98-107); Creatinine Clr Calc Pharmacy 71.8774; Glucose 112 mg/dL (65-115); Magnesium 1.9 mg/dL (1.7-2.3); Osmolality Calculated 281 mOsm/kg (285-295); Phosphorus 3.9 mg/dL (2.5-4.5); Potassium 3.9 mmol/L (3.5-5.1); Sodium 134 mmol/L (136-145)
[2024-07-02 04:54] LABS: NT Pro B Type Natriuretic Pept 8373 pg/mL (0-125)
--- NOTE | 2024-07-02 09:46 | P.PN_ITS ---
<Statement entered by Dayron Gupta M.D - 07/03/24 07:45> Patient was evaluated and cared for in conjunction with an advanced practice practitioner.? I personally examined the patient and reviewed the chart and all pertinent data including imaging, telemetry, and laboratory results.? I discussed the patient in detail with the advanced practice practitioner.? Please see? their note for complete note, testing result and agreed upon plan of care for the patient. Patient has shortness of breath. GENERAL: Patient is alert, awake and oriented x3. HEART: Regular S1 and S2 LUNGS: Clear to auscultate bilaterally. CENTRAL NERVOUS SYSTEM: Grossly nonfocal. EXTREMITIES: 1+ edema Assessment and Plan (1) Atrial fibrillation (2) Chronic anticoagulation (3) CHF exacerbation (4) Troponin level elevated Patient is stable. No changes in medications today. Close I and O monitoring. Keep NPO past midnight. If INR improves by tomorrow, will plan on left heart cath. Coreg restarted. Will need initiation of entresto once renal function is stable. Thank you for involving us care of this patient. We will continue to follow. Please call with questions. Documented by User: Estefania Fernández NP 07/02/24 10:03 Subjective 2 Subjective: Is a very pleasant 74-year-old gentleman with history of acute on chronic congestive heart failure. He underwent heart cath [place] [address] Alcantara that showed EF 40% at that time w/o significant coronary artery disease and globoal hypokinesis. Today he still complaining of some shortness of breath. He is having frequent PVCs. Lung sounds are clear no edema. proBNP elevated 8373. His EF is currently 25%. INR is still elevated at 2.25. Denies chest pain. Having frequent PVCs. Vitals/I&O/Wt Last Vital Signs Temp 97.5 F L 07/02/24 07:21 Pulse 92 07/02/24 07:21 Resp 20 H 07/02/24 07:21 BP 135/72 07/02/24 07:21 Pulse Ox 94 07/02/24 07:21 O2 Del Method Room Air 07/02/24 07:21 O2 Flow Rate 2 07/02/24 03:50 07/01/24 07/02/24 07/02/24 22:59 06:59 14:59 Intake Total 480 / 1200 Balance 480 / 1200 Weight last 48 hrs Weight 217 lb 13.067 oz Weight 220 lb Physical Exam 2 Narrative: General: No apparent distress, healthy appearing, well nourished Neck: No carotid bruit bilaterally Muskuloskeletal: Full ROM Lymphatic: no lymphedema noted Respiratory: Normal respiratory effort, clear to auscultation bilaterally throughout all lung barajas, no use of accessory muscles Cardio: No JVD, regular rate, irregular rhythm, S1 S2 normal, no murmurs, peripheral pulses 2+ throughout GI: slightly distended Extremities: Full ROM, normal, normal capillary refill, no cyanosis or edema Neuro: Alert and oriented x4, no focal motor deficits Psych: Affect normal, denies suicidal ideation, mental status grossly normal Skin: No rashes or lesions noted, no wounds Data 07/03/24 03:09 07/03/24 03:09 Other data: 2016 left heart cath Procedure Summary #1 Left main is normal #2 LAD has luminal irregularities #3 LCx is luminal irregularities #4 RCA has luminal irregularities #5 LV function is moderately depressed 40% by LV gram with global hypokinesis. Please note that patient wasn't atrial fibrillation therefore ejection fraction can be underestimated A&P Assessment and plan (1) Atrial fibrillation: Qualifiers: Atrial fibrillation type: paroxysmal Qualified Code(s): I48.0 - Paroxysmal atrial fibrillation (2) Chronic anticoagulation: (3) CHF exacerbation: Qualifiers: Heart failure type: combined systolic and diastolic Qualified Code(s): I50.43 - Acute on chronic combined systolic (congestive) and diastolic (congestive) heart failure (4) Troponin level elevated: Plan Patient has presented with CHF exacerbation. Continues to have shortness of breath. Is down about 3 pounds. Recent echo shows regional wall motion abnormalities mainly in LAD territory. Troponins were elevated however did not trend up significantly. Close I and Os. Monitor renal function. Plan for coronary angiogram once INR is less than 2. It is still elevated at 2.25. Continue holding Coumadin. At this time, angiogram will need to be delayed until INR less than 2. Will get chest x-ray for shortness of breath. Will restart home dose of coreg due to PVCs. VSS. Attestations 2 Medical Necessity Statement*: Care expected to cross 2 midnights due to the above defined care. Coding Level of Care Code Acute Code for Chg Fwd Diagnoses Paroxysmal atrial fibrillation I48.0 Atrial fibrillation type: paroxysmal Chronic anticoagulation Z79.01 Acute on chronic combined systolic and diastolic congestive heart failure I50.43 Heart failure type: combined systolic and diastolic Troponin level elevated R79.89 Documented by User: Dayron Gupta M.D 07/03/24 07:41 Subjective 2 Subjective: Patient is still short of breath. INR is elevated. Physical Exam 2 Narrative: GENERAL: Patient is alert, awake and oriented x3. [] NECK: No jugular vein distension. [] HEENT: No cyanosis. No icterus. No pallor. [] HEART: Irregularly irregular LUNGS:Diminished air entry. CENTRAL NERVOUS SYSTEM: Grossly nonfocal. [] EXTREMITIES: Lower extremities with 1+ edema bilaterally. Data 07/03/24 03:09 07/03/24 03:09 A&P Assessment and plan (1) Atrial fibrillation: Qualifiers: Atrial fibrillation type: paroxysmal Qualified Code(s): I48.0 - Paroxysmal atrial fibrillation (2) Chronic anticoagulation: (3) CHF exacerbation: Qualifiers: Heart failure type: combined systolic and diastolic Qualified Code(s): I50.43 - Acute on chronic combined systolic (congestive) and diastolic (congestive) heart failure (4) Troponin level elevated: Plan Patient is stable. No changes in medications today. Close I and O monitoring. Keep NPO past midnight. If INR improves by tomorrow, will plan on left heart cath Thank you for involving us care of this patient. We will continue to follow. Please call with questions. Attestations 2 Medical Necessity Statement*: Care expected to cross 2 midnights. Coding Level of Care Code Acute Code for Chg Fwd Diagnoses Paroxysmal atrial fibrillation I48.0 Atrial fibrillation type: paroxysmal Chronic anticoagulation Z79.01 Acute on chronic combined systolic and diastolic congestive heart failure I50.43 Heart failure type: combined systolic and diastolic Troponin level elevated R79.89
--- NOTE | 2024-07-02 09:47 | XR_ITS ---
WS: [id number] Portable AP upright chest, 07/02/2024 Clinical Data: shortness of breath Comparison: Portable chest, 06/29/2024 Findings: There is patchy opacity in the right hilum and in the retrocardiac region. There is a small left pleural effusion. No nodules or masses are seen. The heart is enlarged. The pulmonary vascular ity is not increased. No pneumonia or pneumothorax is seen. The aortic arch and descending thoracic a toshia show calcification and mild tortuosity. Monitor leads are on the chest wall. XR/XR chest 1V portable [id number] Impression: 1. Minimal patchy opacity in right hilum and retrocardiac region which could in dicate minimal pneumonia. 2. Cardiomegaly and small left pleural effusion. 3. Atherosclerosis
[2024-07-02] MEDS: spironolactone 25 mg Tablet 37.5 MG PO (10:03)
[2024-07-02] MEDS: aspirin 81 mg EC Tablet PO (10:03)
[2024-07-02] MEDS: atorvastatin 40 mg Tablet PO (10:03)
[2024-07-02] MEDS: carvedilol 6.25 mg Tablet PO ×2 (10:29→17:24)
[2024-07-02] MEDS: acetaminophen 325 mg Tablet 650 MG PO (11:44)
[2024-07-02] MEDS: morphine 4 mg/mL SDV 1 mL 2 MG IVP (13:20)
[2024-07-02 13:48] LABS: INR 1.89 (0.8-1.2)
[2024-07-02] MEDS: ipratropium-albuterol 3 mL Neb INHALATION (13:48)
[2024-07-02] MEDS: pantoprazole 40 mg SDV IVP (14:23)
[2024-07-02] MEDS: FUROsemide 10 mg/mL SDV 2mL 20 MG IVP (14:23)
--- NOTE | 2024-07-02 14:37 | PC.SOCIAL ---
IMM UPDATED IMM dated and initialed, copy given to patient and copy placed in chart.
[2024-07-02] MEDS: polyethylene glycol 3350 Pkt 17 gm PO (16:07)
--- NOTE | 2024-07-02 17:07 | P.PN_ITS ---
Subjective 2 Subjective: Patient was seen this morning, he is alert oriented x 3, following all commands, does complain of some shortness of breath, no chest pain overnight, creatinine down to 1, his INR is 2.25, recheck this afternoon Vitals/I&O/Wt Last Vital Signs Temp 98.0 F 07/02/24 16:00 Pulse 81 07/02/24 16:00 Resp 24 H 07/02/24 16:00 BP 141/84 07/02/24 16:00 Pulse Ox 95 07/02/24 16:00 O2 Del Method Room Air 07/02/24 16:00 O2 Flow Rate 2 07/02/24 03:50 Weight last 48 hrs Weight 98.8 kg Weight 99.79 kg Physical Exam 2 Const: COMMON NORMALS: no acute distress and patient oriented x3 Resp: COMMON NORMALS: normal respiratory effort, No retractions and No use of accessory muscles AUSCULTATION: crackles Cardio: COMMON NORMALS: regular rate, regular rhythm, S1 normal heart sound present and S2 normal heart sound present RATE: regular rate RHYTHM: r egular rhythm HEART SOUNDS: S1 normal heart sound present and S2 normal heart sound present GI: COMMON NORMALS: Normal to inspection, nondistended, normoactive bowel sounds present and non-tender Extremity: COMMON NORMALS: no pedal edema Neuro: COMMON NORMALS: patient oriented x3 Psych: COMMON NORMALS: mental status grossly normal Data 07/02/24 03:07 07/02/24 03:07 A&P Assessment and plan (1) CHF exacerbation: Qualifiers: Heart failure type: combined systolic and diastolic Qualified Code(s): I50.43 - Acute on chronic combined systolic (congestive) and diastolic (congestive) heart failure (2) NSTEMI (non-ST elevated myocardial infarction): Plan CHF exacerbation -Fluid restrictions at 1000 cc -Lasix 20 mg IV once -Creatinine monitor potassium -Monitor respiratory status closely NSTEMI -Recent echocardiogram CONCLUSIONS Moderately increased left ventricular cavity size. Severely decreased left ventricular systolic function. Left ventricular ejection fraction is estimated at 25 %. There appeared to be anterior anteroseptal and apical wall hypokinesis there appeared to be lateral wall akinesis.Grade II/IV diastolic dysfunction, moderately elevated filling pressures. Moderately thickened mitral valve. No mitral valve stenosis. Severe mitral valve regurgitation. Moderate aortic valve calcification. No aortic valve stenosis. Mild aortic valve regurgitation. There is no pericardial effusion. Pulmonary artery systolic pressure is within normal limits. Right atrial pressure is around 10 mm of mercury. -No complaints of active chest pain Plan -Serial EKGs, serial troponins, telemetry monitoring -Continue aspirin, statin -Hold Coumadin, -Cardiology consulted -Full code -INR 2.25 DVT prophylaxis Spoke to cardiology 01 dose IV Lasix, awaiting coronary angiography, spoke to cardiology, spoke to patient, spoke to patient's family Attestations 2 Medical Necessity Statement*: Patient requires hospitalization for CHF, NSTEMI Diagnoses Acute on chronic combined systolic and diastolic congestive heart failure I50.43 Heart failure type: combined systolic and diastolic NSTEMI (non-ST elevated myocardial infarction) I21.4
[2024-07-03] VITALS (14 sets, daily range): BP systolic 101–136; BP diastolic 63–85; PULSE 70–102; RESP 16–28; TEMP 36.7–37.1; O2SAT 91–97
[2024-07-03] MEDS: ALPRAZolam 0.5 mg Tablet PO (00:15)
[2024-07-03 04:17] LABS: Basophils # 0.1 10^3/uL (0.0-0.1); Basophils % 0.8 %; Eosinophils # 0.1 10^3/uL (0.0-0.8); Eosinophils % 1.5 %; Hematocrit 41.9 % (37-53); Lymphocytes % 13.9 %; Mean Corpuscular HGB Conc 33.2 g/dL (30-55); Mean Corpuscular Volume 96.5 fl (82-101); Mean Platelet Volume 10.6 fL (7.4-10.4); Monocytes # 0.6 10^3/uL (0.2-0.9); Neutrophils # 5.32 10^3/uL (1.8-7.7); Neutrophils % 74.7 %; Nucleated Red Blood Cells % 0 %; Platelet Count 180 10^3/cmm (157-399); Red Blood Count 4.34 10^6/uL (3.85-5.65); Red Cell Distribution Width 14.2 % (12.1-15.1); White Blood Count 7.13 10^3/uL (3.29-11.43)
[2024-07-03 04:30] LABS: INR 1.64 (0.8-1.2)
[2024-07-03 04:34] LABS: Anion Gap 11.3 (5-19); Blood Urea Nitrogen 22 mg/dL (8-23); Calcium 9.2 mg/dL (8.5-10.5); Carbon Dioxide 32 mmol/L (22-29); Chloride 97 mmol/L (98-107); Creatinine Clr Calc Pharmacy 60.5316; Glucose 108 mg/dL (65-115); Osmolality Calculated 286 mOsm/kg (285-295); Potassium 4.3 mmol/L (3.5-5.1); Sodium 136 mmol/L (136-145)
[2024-07-03] MEDS: diphenhydrAMINE 50 mg Capsule PO (05:05)
[2024-07-03] MEDS: sodium chloride 0.9% 1,000 ML 50 ML IV (05:06)
--- NOTE | 2024-07-03 05:44 | XACV_ITS ---
Exam Room: 2 Ht: 178 cm Wt: 98 kg BSA: 2.23 m2 Gender: Male : 1950 Any Known Allergies: No known allergies Exam Priority: Routine Procedure(s): Procedure Description: Diagnostic procedure Procedure Description: Coronary Angiography Diagnostic Cath Status: Elective Diagnostic Findings * No significant disease noted in the Left Main, Left Anterior Descending, Right, or Circumflex coronary arteries. * Coronary angiography shows right dominance. Conclusions 1. No significant disease noted in the Left Main, Left Anterior Descending, Right, or Circumflex coronary arteries. Recommendations * Aggressive medical therapy for congestive heart failure. * Outpatient cardiology follow up in 2 weeks. Interventional RX Recommendation: medical therapy and/or counseling Diagnostic RX Recommendation: medical therapy and/or counseling Pressures Phase:Rest AO : 129 / 59 ( 82 ) @ 6:29:00 AM 122 / 66 ( 88 ) @ 6:29:00 AM LV : 116 / 10 / 21 @ 6:29:00 AM 117 / 11 / 21 @ 6:29:00 AM Valves Phase:DefaultPhase AV : 1.0 @ 6:40:41 AM AV Mean Gradient: 0.0 @ 6:40:41 AM Clinical Evaluation EBL: 5mL-10mL Procedural Details Procedure Consent Obtained. Admit Source: In Patient. Pre-Procedure Time Out. Identified patient by full name and date of as verbalized by the patient/guarantor. Does the consent match the physician's order: Yes. Accurate & Complete Informed Consent: Yes. Inpatient/Outpatient History & Physical on Chart: Yes. If H&P is completed, is and addenduem needed: No; If yes, is the addendum complete: N/A. Visualize and Verify Site with Patient/Guarantor: N/A. Relevant Radiology Images available: N/A. The risks, benefits, and alternatives of sedation and/or procedure were discussed by physician. The patient agrees to continue. Procedure started. [facility] Clinical Fraility Score: 4: Vulnerable. Desk Editor Indications: LV Dysfunction. Correct patient, site and procedure confirmed by cath team. Current diagnosis: LV dysfunction. PERRLA. Strong, equal hand hand crown pouncer bilaterally. Lungs clear x 5 lobes. IV Site on Arrival: 20 gauge in the left anticubital. IV Fluids: 0.9% NaCl at KVO. 0 mL infused prior to bundle tier and labeler. Pre Procedural Pulses: bilateral radial was 3+. Pre Procedural Pulses: bilateral posterior tibial was Doppled. Pre Procedural Pulses: bilateral dorsalis pedis was Doppled. Oxygen started at 2liters/min via nasal canula. bilateral groins was prepped with chloroprep then draped in the usual sterile fashion. Physician notified. Baseline sample Acquired. HR: 102 BPM. Physician arrived. Physician scrubbed in. Immediate Pre-Procedure Time Out. Correct Patient: Yes; Correct Procedure: Yes; Correct Site: Yes; Correct Patient Position: Yes; Correct Supplies: Yes; Dried Flammable Prep: Yes; Blood Products Available: No;. Lidocaine 1% infiltrated to the right groin. Arterial access obtained with micropuncture set. A 5 finnish JL4 catheter in over wire. Multiple views taken of left coronary artery. Catheter removed over the standard wire. A 5 finnish JR4 catheter in over wire. EDP Sample taken: LV 116/10,21; HR: 85 BPM; SpO2: 84%. Pullback taken: LV 117/11,21; AO 129/59(82); Mean: 0mmHg, Peak to Peak: 1mmHg, SEP: 20sec/min; HR: 73 BPM; SpO2: 77%. Multiple views taken of right coronary artery. Catheter removed over the standard wire. A Right femoral angiogram was performed to determine safe placement of closure device. Post Procedure: Pulses reassessed and unchanged. PERRLA. Strong, equal hand hand crown pouncer bilaterally. No VTE prophylaxis required. Medication's Wasted: Lidocaine 1% = 10 mL. Medication's Wasted: Heparin = 1000 units. Medication's Wasted: Other = Fentanyl 50mcg, Versed 1 mg. Total IV fluids: 15 mL. A Mynx was successful obtaining hemostatsis at the Right Femoral artery insertion site. LOT # [id number] EXP 05-08-2026. Post-op diagnosis: Non-ischemic cardiomyopathy. Complications: None. Estimated blood loss: 5mL-10mL. Responsiveness - Normal response to verbal stimuli; alert and oriented, PERRLA. Airway - Unaffected, no intervention required; spontaneous ventilation. Circulation: W/N/L, pulses unchanged. Nausea/Vomiting: No. Procedure completed. Patient transferred by bed to 1st floor. Vital chart was stopped. Access Site Site: Right Femoral artery Sheath Size: 6 Fr Hemostasis Method: Mynx Hemostasis Success: Successful Procedure Medications Start: 6:19 AM Stop: 6:19 AM Medication: Versed Amount: 1 mg Route: I.V. Start: 6:19 AM Stop: 6:19 AM Medication: Fentanyl Amount: 50 mcg Route: I.V. I, the attending physician, have reviewed and verified all procedure medications. Yes, all medications given per verbal order History/Risk Factors Hypertension: Yes Dyslipidemia: No Peripheral Arterial Disease (PAD): No Myocardial Infarction (DE): No Obesity: No Renal Disease: No Tobacco Use: Former Prior Interventions PCI: No CABG: No Valve Surgery: No Report Signatures Finalized by Dayron Gupta MD on 07/08/2024 11:17 AM
--- NOTE | 2024-07-03 06:16 | W.PM.OPSUD ---
Surgery/Procedure H&P Update DATE OF PROCEDURE: July 03, 2024 DATE H&P PERFORMED: 06/30/24 H&P UPDATE INFORMATION: I have reviewed H&P completed within last 30 days, I have examined patient prior to procedure and No changes to prior documentation PREOP DIAGNOSIS: LV dysfunction PRIMARY INDICATION FOR PROCEDURE: LV dysfunction PLANNED PROCEDURE: Operation Date: 07/03/24 06:00 Proposed Procedures p Cardiac Catheterization(Left) - Dayron Gupta M.D Possible percutaneous coronary intervention PATIENT REASSESSED PRIOR TO SEDATION, WITH NO CHANGE NOTED: Yes PHYSICAL EXAM: alert, oriented x 3 and clear to auscultation bilaterally OTHER PERTINENT EXAM FINDINGS: Irregularly irregular AIRWAY EVAL/ANESTHESIA PLAN: normal airway, ASA III, Local Anesthesia, Risks, benefits & alternatives of sedation and/or procedure discussed and Patient agrees to continue as planned
--- NOTE | 2024-07-03 07:39 | PC.NURSE ---
Patient came back from general labor at 0700 with NS at 50ml/hr.
[2024-07-03] MEDS: spironolactone 25 mg Tablet 37.5 MG PO (08:18)
[2024-07-03] MEDS: carvedilol 6.25 mg Tablet PO ×2 (08:18→17:16)
[2024-07-03] MEDS: aspirin 81 mg EC Tablet PO (08:18)
[2024-07-03] MEDS: atorvastatin 40 mg Tablet PO (08:18)
--- NOTE | 2024-07-03 09:33 | XRR_ITS ---
PROCEDURE INFORMATION: Exam: XR Chest Exam date and time: 07/03/2024 9:35 AM Age: 74 years old Clinical indication: Shortness of breath; Additional info: Shortness of breath, HX of pleural effusion TECHNIQUE: Imaging protocol: Radiologic exam of the chest. Views: 1 view. COMPARISON: CR XR chest 1V portable [id number] 07/02/2024 10:06 AM FINDINGS: Lungs: Moderate diffuse interstitial prominence. Possible left lower lobe infiltrate, unchanged in appearance Pleural spaces: Unremarkable. No pleural effusion. No pneumothorax. Heart/Mediastinum: See Vasculature finding. Vasculature: Mild cardiomegaly and uncoiling of the thoracic aorta. Bones/joints: Unremarkable. XR/XR chest 1V portable [id number] IMPRESSION: Minimal opacity at the left lung base, slightly greater than before.
--- NOTE | 2024-07-03 09:37 | P.PN_ITS ---
<Statement entered by Dayron Gupta M.D - 07/04/24 08:02> Patient was evaluated and cared for in conjunction with an advanced practice practitioner.? I personally examined the patient and reviewed the chart and all pertinent data including imaging, telemetry, and laboratory results.? I discussed the patient in detail with the advanced practice practitioner.? Please see?their note for complete progress note, result and agreed upon plan of care for the patient. Patient still feeling short of breath. No chest pain. Cath did not show significant CAD. GENERAL: Patient is alert, awake and oriented x3. HEART: Regular S1 and S2 LUNGS: Diminished air entry CENTRAL NERVOUS SYSTEM: Grossly nonfocal. EXTREMITIES: Lower extremities with out edema bilaterally. Atrial fibrillation CHF exacerbation Non ischemic cardiomyopathy Coronary angiogram demonstrates patent coronary arteries. Nonischemic cardiomyopathy. Will order LifeVest. Continue Coreg. Once renal function improves, can start Entresto. Monitor renal function. Will restart diuretics once creatinine returns back to normal. Thank you for involving us with care of this patient. We will continue to follow. Please call with questions. Subjective 2 Subjective: Patient just came back from the Stick Feeder today. This was negative for significant coronary artery lesions. EF is currently around 25%. We will see about getting him a LifeVest today. He required 6 L of nasal cannula during his Stick Feeder procedure. Today he is still short of breath. His O2 was in the 80s when I first observed him but his oxygen was not on properly. After adjusted, he is now at 92% on 4 LNC. We will get an x-ray today. His creat did come up slightly to 1.3. Still having frequent ectopy. Medications: Reviewed: Yes Vitals/I&O/Wt Last Vital Signs Temp 98.8 F 07/03/24 04:00 Pulse 70 07/03/24 08:26 Resp 16 07/03/24 08:05 BP 119/77 07/03/24 08:26 Pulse Ox 92 07/03/24 08:05 O2 Del Method Nasal Cannula 07/03/24 08:05 O2 Flow Rate 4 07/03/24 08:05 07/02/24 07/03/24 07/03/24 22:59 06:59 14:59 Intake Total 480 / 480 400 / 880 Output Total 600 / 600 Balance 480 / 480 -200 / 280 Weight last 48 hrs Weight 217 lb 13.067 oz Weight 217 lb 13.067 oz Physical Exam 2 Narrative: General: No apparent distress, healthy appearing, well nourished Neck: No carotid bruit bilaterally Lymphatic: no lymphedema noted Respiratory: shortness of breath, clear to auscultation bilaterally throughout except diminished in left lower lobe, no use of accessory muscles Cardio: No JVD, irregularly irregular rhythm with frequent PVCs, S1 S2 normal, no murmurs, peripheral pulses 2+ throughout GI: Normal to inspection, nondistended Extremities: Full ROM, normal, normal capillary refill, no cyanosis or edema Neuro: Alert and oriented x4, no focal motor deficits Psych: Affect normal, denies suicidal ideation, mental status grossly normal Skin: right groin site clean, dry, soft, w/o evidence of hematoma Data 07/03/24 03:09 07/03/24 03:09 A&P Assessment and plan (1) Atrial fibrillation: Qualifiers: Atrial fibrillation type: paroxysmal Qualified Code(s): I48.0 - Paroxysmal atrial fibrillation (2) Chronic anticoagulation: (3) CHF exacerbation: Qualifiers: Heart failure type: combined systolic and diastolic Qualified Code(s): I50.43 - Acute on chronic combined systolic (congestive) and diastolic (congestive) heart failure (4) Troponin level elevated: Plan Patient still has shortness of breath. Some of this could due to recent sedation. X-ray getting done today. No changes in medications today. Close I and O monitoring. INR subtherapeutic. Will restart coumadin today. Patient has nonischemic cardiomyopathy with EF around 25%. He does agree to get fitted for a LifeVest. Will order that today. Will go ahead and keep him another day due to the increased shortness of breath and creatinine. The A-fib may be contributing to his heart failure. We will talk about referring him for possible ablation on an outpatient basis. Attestations 2 Medical Necessity Statement*: Patient requires hospitalization for CHF, NSTEMI Coding Level of Care Code Acute Code for Chg Fwd Diagnoses Paroxysmal atrial fibrillation I48.0 Atrial fibrillation type: paroxysmal Chronic anticoagulation Z79.01 Acute on chronic combined systolic and diastolic congestive heart failure I50.43 Heart failure type: combined systolic and diastolic Troponin level elevated R79.89
--- NOTE | 2024-07-03 09:38 | PC.NURSE ---
NS was stopped at 0910 per provider.
[2024-07-03 09:46] LABS: ABG PCO2 47.7 mmHg (35-45); Arterial Blood Gas Hematocrit 47.2 % (42-52); Base Excess ABG 3.7 mmol/L (-2.0-2.0); Blood Gas Allen Test Pos; Blood Gas Operator Identificat WALCI; Blood Gas Sample Site Radial, left; Blood Gas Sample Type Arterial; HCO3 ABG 29.5 mmol/L (22-26); Oxygen Device NC; PO2 ABG 57.2 mmHg (80.0-100.0)
[2024-07-03 10:40] LABS: NT Pro B Type Natriuretic Pept 7335 pg/mL (0-125)
--- NOTE | 2024-07-03 12:24 | PC.NURSE ---
Mr Christiansen he has not had a BM since he has been here. He had a one time order for Miralax yesterday. Can I have something for today? Provider ordered Miralax 17 grams once. Order entered.
[2024-07-03] MEDS: polyethylene glycol 3350 Pkt 17 gm PO (12:36)
--- NOTE | 2024-07-03 13:57 | P.PN_ITS ---
Subjective 2 Subjective: Patient was seen this morning, he is status post cath, denies any chest pain, no stents placed during cardiac cath, he complains of shortness of breath, no chest pain, Vitals/I&O/Wt Last Vital Signs Temp 98.2 F 07/03/24 11:21 Pulse 81 07/03/24 11:21 Resp 24 H 07/03/24 11:21 BP 136/66 07/03/24 11:21 Pulse Ox 92 07/03/24 11:21 O2 Del Method Nasal Cannula 07/03/24 11:21 O2 Flow Rate 2 07/03/24 11:21 07/02/24 07/03/24 07/03/24 22:59 06:59 14:59 Intake Total 480 / 480 400 / 880 360 / 360 Output Total 600 / 600 Balance 480 / 480 -200 / 280 360 / 360 Weight last 48 hrs Weight 98.8 kg Weight 98.8 kg Physical Exam 2 Const: COMMON NORMALS: no acute distress and patient oriented x3 Resp: COMMON NORMALS: normal respiratory effort, No retractions and No use of accessory muscles AUSCULTATION: crackles Cardio: COMMON NORMALS: regular rate, regular rhythm, S1 normal heart sound present and S2 normal heart sound present RATE: regular rate RHYTHM: r egular rhythm HEART SOUNDS: S1 normal heart sound present and S2 normal heart sound present GI: COMMON NORMALS: Normal to inspection, nondistended, normoactive bowel sounds present and non-tender Extremity: COMMON NORMALS: no pedal edema Neuro: COMMON NORMALS: patient oriented x3 Psych: COMMON NORMALS: mental status grossly normal Data 07/03/24 03:09 07/03/24 03:09 A&P Assessment and plan (1) CHF exacerbation: Qualifiers: Heart failure type: combined systolic and diastolic Qualified Code(s): I50.43 - Acute on chronic combined systolic (congestive) and diastolic (congestive) heart failure (2) NSTEMI (non-ST elevated myocardial infarction): Plan CHF exacerbation -Fluid restrictions at 1000 cc -hold lasix -hold fluids -monitor Creatinine, potassium -Monitor respiratory status closely NSTEMI -Recent echocardiogram CONCLUSIONS Moderately increased left ventricular cavity size. Severely decreased left ventricular systolic function. Left ventricular ejection fraction is estimated at 25 %. There appeared to be anterior anteroseptal and apical wall hypokinesis there appeared to be lateral wall akinesis.Grade II/IV diastolic dysfunction, moderately elevated filling pressures. Moderately thickened mitral valve. No mitral valve stenosis. Severe mitral valve regurgitation. Moderate aortic valve calcification. No aortic valve stenosis. Mild aortic valve regurgitation. There is no pericardial effusion. Pulmonary artery systolic pressure is within normal limits. Right atrial pressure is around 10 mm of mercury. -No complaints of active chest pain -s/p coronary angiography no significant obstructive disease Plan -Serial EKGs, serial troponins, telemetry monitoring -Continue aspirin, statin -resume Coumadin, -Cardiology consulted -Full code -INR 1.64 DVT prophylaxis Spoke to cardiology Plan for today, status post coronary angiography, short of breath status post procedure chest x-ray, ABG, hold fluids, monitor clinical status will consider Lasix, will consider BiPAP, spoke to cardiology Attestations 2 Medical Necessity Statement*: Patient requires hospitalization for shortness of breath, status post coronary angiography, monitor respiratory status Diagnoses Acute on chronic combined systolic and diastolic congestive heart failure I50.43 Heart failure type: combined systolic and diastolic NSTEMI (non-ST elevated myocardial infarction) I21.4
[2024-07-03] MEDS: pantoprazole 40 mg SDV IVP (14:34)
[2024-07-03] MEDS: warfarin 3 mg Tablet PO (14:34)
[2024-07-03] MEDS: morphine 4 mg/mL SDV 1 mL 2 MG IVP (16:08)
--- NOTE | 2024-07-03 16:29 | PC.NURSE ---
Leon Chu transported patient to [facility], leaving the unit at 1630.
[2024-07-04] VITALS (9 sets, daily range): BP systolic 104–123; BP diastolic 64–78; PULSE 73–99; RESP 12–21; TEMP 36.8–37.4; O2SAT 89–99
[2024-07-04 04:16] LABS: Basophils # 0.1 10^3/uL (0.0-0.1); Basophils % 0.7 %; Eosinophils # 0.1 10^3/uL (0.0-0.8); Eosinophils % 1.6 %; Hematocrit 43.9 % (37-53); Lymphocytes % 13.1 %; Mean Corpuscular HGB Conc 32.6 g/dL (30-55); Mean Corpuscular Hemoglobin 32.6 pg (27-33); Mean Corpuscular Volume 100.2 fl (82-101); Mean Platelet Volume 10.4 fL (7.4-10.4); Monocytes # 0.7 10^3/uL (0.2-0.9); Monocytes % 9.2 %; Neutrophils # 5.58 10^3/uL (1.8-7.7); Nucleated Red Blood Cells % 0 %; Platelet Count 187 10^3/cmm (157-399); Red Blood Count 4.38 10^6/uL (3.85-5.65); Red Cell Distribution Width 14.6 % (12.1-15.1); White Blood Count 7.43 10^3/uL (3.29-11.43)
[2024-07-04 04:42] LABS: Alanine Aminotransferase 14 U/L (0-41); Albumin Level 3.7 g/dL (3.5-5.2); Alkaline Phosphatase 50 U/L (40-130); Aspartate Amino Transferase 17 U/L (0-40); Blood Urea Nitrogen 22 mg/dL (8-23); Calcium 8.9 mg/dL (8.5-10.5); Carbon Dioxide 28 mmol/L (22-29); Chloride 97 mmol/L (98-107); Creatinine Clr Calc Pharmacy 71.5374; Globulin 2.3 g/dL (1.3-4.6); Glucose 122 mg/dL (65-115); Magnesium 2.2 mg/dL (1.7-2.3); Osmolality Calculated 287 mOsm/kg (285-295); Sodium 136 mmol/L (136-145); Total Bilirubin 2.1 mg/dL (0.15-1.2)
[2024-07-04 04:47] LABS: Anion Gap 16.1 (5-19); Potassium 5.1 mmol/L (3.5-5.1)
[2024-07-04 04:49] LABS: NT Pro B Type Natriuretic Pept 8347 pg/mL (0-125)
[2024-07-04] MEDS: acetaminophen 325 mg Tablet 650 MG PO (07:57)
[2024-07-04] MEDS: spironolactone 25 mg Tablet 37.5 MG PO (07:57)
[2024-07-04] MEDS: aspirin 81 mg EC Tablet PO (07:58)
[2024-07-04] MEDS: atorvastatin 40 mg Tablet PO (07:58)
[2024-07-04] MEDS: carvedilol 6.25 mg Tablet PO (07:58)
--- NOTE | 2024-07-04 09:12 | PC.NURSE ---
Per physician IVP lasix order changed to PO due to no IV access and pt possibly being discharged today. Also ordered a home o2 evaluation and will have patient ambulate and report back to Esteafnia Fernández NP around lunch time to decide if discharge will proceed.
--- NOTE | 2024-07-04 09:39 | P.PN_ITS ---
Subjective 2 Subjective: Patient doing well today. He appears much better than yesterday. Oxygen saturation 99% on nasal cannula. We are awaiting LifeVest placement today. Denies chest pain or shortness of breath at this time. Vitals/I&O/Wt Last Vital Signs Temp 98.3 F 07/04/24 08:00 Pulse 99 07/04/24 08:00 Resp 13 07/04/24 08:00 BP 120/78 07/04/24 08:00 Pulse Ox 99 07/04/24 07:40 O2 Del Method Nasal Cannula 07/04/24 07:40 O2 Flow Rate 2 07/03/24 16:00 07/03/24 07/04/24 07/04/24 22:59 06:59 14:59 Intake Total 640 / 1000 1420 / 2420 Output Total 300 / 300 300 / 600 Balance 340 / 700 1120 / 1820 Weight last 48 hrs Weight 220 lb 0.341 oz Weight 217 lb 13.067 oz Physical Exam 2 Narrative: General: No apparent distress, healthy appearing, well nourished Neck: No carotid bruit bilaterally Lymphatic: no lymphedema noted Respiratory: shortness of breath, clear to auscultation bilaterally throughout except diminished in left lower lobe, no use of accessory muscles Cardio: No JVD, irregularly irregular rhythm with frequent PVCs, S1 S2 normal, no murmurs, peripheral pulses 2+ throughout GI: Normal to inspection, nondistended Extremities: Full ROM, normal, normal capillary refill, no cyanosis or edema Neuro: Alert and oriented x4, no focal motor deficits Psych: Affect normal, denies suicidal ideation, mental status grossly normal Skin: right groin site clean, dry, soft, w/o evidence of hematoma Data 07/04/24 03:43 07/04/24 03:43 A&P Assessment and plan (1) CHF exacerbation: Qualifiers: Heart failure type: combined systolic and diastolic Qualified Code(s): I50.43 - Acute on chronic combined systolic (congestive) and diastolic (congestive) heart failure (2) Atrial fibrillation: Qualifiers: Atrial fibrillation type: paroxysmal Qualified Code(s): I48.0 - Paroxysmal atrial fibrillation (3) Chronic anticoagulation: (4) Troponin level elevated: Plan Patient has much improvement. He needs home O2 eval. Life vest will be placed today. Labs are stable, so will start Entresto today and see how he does with this. INR subtherapeutic. Continue home dose coumadin. Will need that re-evaluated outpatient as well. Patient has nonischemic cardiomyopathy with EF around 25%. Getting LifeVest. He may need referred for an ablation on an outpatient basis. From cardiology standpoint, he needs home O2 eval, get lifevest, get him up to walk, start entresto, if he does ok, may be discharged later today. Attestations 2 Medical Necessity Statement*: Patient requires hospitalization for shortness of breath, status post coronary angiography, monitor respiratory status Coding Level of Care Code Acute Code for Chg Fwd Diagnoses Acute on chronic combined systolic and diastolic congestive heart failure I50.43 Heart failure type: combined systolic and diastolic Paroxysmal atrial fibrillation I48.0 Atrial fibrillation type: paroxysmal Chronic anticoagulation Z79.01 Troponin level elevated R79.89
[2024-07-04] MEDS: FUROsemide 40 mg Tablet PO (09:40)
[2024-07-04] MEDS: sacubitril/valsartan 24-26 mg Tablet 1 EACH PO (09:40)
--- NOTE | 2024-07-04 10:48 | P.DS_ITS ---
Discharge Providers Date of Admission: 06/29/24 13:02 Date of Discharge: July 04, 2024 Attending Provider at Admission: Michael Davis MD Attending Provider at Discharge: Michael Davis MD Primary Care Provider: Enedina Peters MD Diagnoses at Discharge Discharge Diagnosis (1) CHF exacerbation: Status: Acute Qualifiers: Heart failure type: combined systolic and diastolic Qualified Code(s): I50.43 - Acute on chronic combined systolic (congestive) and diastolic (congestive) heart failure (2) Atrial fibrillation: Status: Acute Qualifiers: Atrial fibrillation type: paroxysmal Qualified Code(s): I48.0 - Paroxysmal atrial fibrillation (3) Chronic anticoagulation: Status: Acute (4) Troponin level elevated: Status: Acute Reason for Visit Reason for Visit: SOB Hospital Course Hospital Course Farshad Christiansen is a 74 year old male with a past medical history of CHF, atri al fibrillation, hypertension, who presents [facility] for shortness of breath. Patient reports that recently he had cataract surgery, who his Coumadin was held, and he was transition to therapeutic Lovenox, he is back on Coumadin. He tells me for the last few weeks he has had increased shortness of breath, increased shortness of breath with exertion now at rest, does report orthopnea, overall paroxysmal nocturnal dyspnea, no chest pain, no palpitations, no nausea, no vomiting, does report abdominal bloating, Patient was admitted to [facility] for systolic CHF exacerbation, EF of 25%, received IV diuresis, overall clinically improved with IV diuresis, discharged with Lasix therapy 40 mg daily with potassium replacement therapy as outpatient For his NSTEMI -Recent echocardiogram CONCLUSIONS Moderately increased left ventricular cavity size. Severely decreased left ventricular systolic function. Left ventricular ejection fraction is estimated at 25 %. There appeared to be anterior anteroseptal and apical wall hypokinesis there appeared to be lateral wall akinesis.Grade II/IV diastolic dysfunction, moderately elevated filling pressures. Moderately thickened mitral valve. No mitral valve stenosis. Severe mitral valve regurgitation. Moderate aortic valve calcification. No aortic valve stenosis. Mild aortic valve regurgitation. There is no pericardial effusion. Pulmonary artery systolic pressure is within normal limits. Right atrial pressure is around 10 mm of mercury. -No complaints of active chest pain -Cardiology consulted, -s/p coronary angiography no significant obstructive disease -Will be discharged on beta-lala, spironolactone with a close follow-up with cardiology as outpatient -Charged with LifeVest in place, discussed compliance, morbidity or mortality associate with noncompliance For his atrial fibrillation, continue home Coumadin follow-up with cardiology Physical Exam Const: COMMON NORMALS: no acute distress and patient oriented x3 Resp: COMMON NORMALS: normal respiratory effort, No retractions, No use of accessory muscles and clear to auscultation bilaterally AUSCULTATION: clear to auscultation bilaterally Cardio: COMMON NORMALS: regular rate, regular rhythm, S1 normal heart sound present and S2 normal heart sound present RATE: regular rate RHYTHM: regular rhythm HEART SOUNDS: S1 normal heart sound present and S2 normal heart sound present GI: COMMON NORMALS: Normal to inspection, nondistended, normoactive bowel sounds present and non-tender Extremity: COMMON NORMALS: no clubbing, cyanosis or edema and no pedal edema Neuro: COMMON NORMALS: patient oriented x3 Psych: COMMON NORMALS: mental status grossly normal Discharge Data Studies Completed and Pending Completed Studies During Hospitalization Category Date Time Status CT angio chest PE protcl [id number] Stat Cat Scan 06/29/24 11:52 Completed XR chest 1V portable [id number] NOW Exams 07/03/24 09:33 Completed XR chest 1V portable [id number] Routine Exams 07/02/24 09:47 Completed XR chest 1V portable [id number] Stat Exams 06/29/24 09:46 Completed Pending at discharge Category Date Time Status [employer]PER[employer]ENDENT request for service Routine Exams 07/03/24 05:44 Taken Complete Blood Count w/Auto AM LABS Lab 07/05/24 04:00 Ordered Complete Blood Count w/Auto AM LABS Lab 07/06/24 04:00 Ordered Comprehensive Metabolic Panel AM LABS Lab 07/05/24 04:00 Ordered Comprehensive Metabolic Panel AM LABS Lab 07/06/24 04:00 Ordered Magnesium AM LABS Lab 07/05/24 04:00 Ordered Magnesium AM LABS Lab 07/06/24 04:00 Ordered NT Pro B Type Natriuretic Pept QAM Lab 07/05/24 06:00 Ordered NT Pro B Type Natriuretic Pept QAM Lab 07/06/24 06:00 Ordered Prothrombin Time INR AM LABS Lab 07/05/24 04:00 Ordered Prothrombin Time INR AM LABS Lab 07/06/24 04:00 Ordered Radiology Impressions Chest CTA 06/29/24 11:52 IMPRESSION: 1. Proximal main pulmonary arteries are normal. No evidence of pulmonary embolus. 2. Enlarging suspicious LEFT breast nodule with a few calcifications. This is increased in size since 2018 recommend further evaluation with LEFT breast diagnostic mammography and ultrasound. 3. Cardiomegaly. 4. Reflux into the hepatic veins suggestive of RIGHT heart dysfunction. 5. Small bilateral pleural effusions. 6. Diffuse hazy groundglass attenuation within both lungs with interstitial thickening can be seen with pulmonary edema or viral pneumonia Chest X-Ray 07/03/24 09:33 IMPRESSION: Minimal opacity at the left lung base, slightly greater than before. Laboratory Results WBC 7.43 10^3/uL (3.29-11.43) 07/04/24 03:43 RBC 4.38 10^6/uL (3.85-5.65) 07/04/24 03:43 Hgb 14.30 g/dL (11.27-16.99) 07/04/24 03:43 Hct 43.9 % (37-53) 07/04/24 03:43 MCV 100.2 fl (82-101) 07/04/24 03:43 MCH 32.6 pg (27-33) 07/04/24 03:43 MCHC 32.6 g/dL (30-55) 07/04/24 03:43 RDW 14.6 % (12.1-15.1) 07/04/24 03:43 Plt Count 187 10^3/cmm (157-399) 07/04/24 03:43 MPV 10.4 fL (7.4-10.4) 07/04/24 03:43 Neut % (Auto) 75.0 % 07/04/24 03:43 Lymph % (Auto) 13.1 % 07/04/24 03:43 [place] % (Auto) 9.2 % 07/04/24 03:43 Eos % (Auto) 1.6 % 07/04/24 03:43 Baso % (Auto) 0.7 % 07/04/24 03:43 Neut # (Auto) 5.58 10^3/uL (1.8-7.7) 07/04/24 03:43 Lymph # (Auto) 1.0 10^3/uL (0.8-4.8) 07/04/24 03:43 [place] # (Auto) 0.7 10^3/uL (0.2-0.9) 07/04/24 03:43 Eos # (Auto) 0.1 10^3/uL (0.0-0.8) 07/04/24 03:43 Baso # (Auto) 0.1 10^3/uL (0.0-0.1) 07/04/24 03:43 Nucleated RBC % (auto) 0 % 07/04/24 03:43 Nucleated RBCs # 0.0 /100WBC 07/04/24 03:43 PT 18.60 SECONDS (12.1-14.9) H 07/04/24 03:43 INR 1.50 (0.8-1.2) H 07/04/24 03:43 Specimen Type Arterial 07/03/24 09:34 Sample Site Radial, left 07/03/24 09:34 ABG pH 7.40 (7.35-7.45) 07/03/24 09:34 ABG pCO2 47.7 mmHg (35-45) H 07/03/24 09:34 ABG pO2 57.2 mmHg (80.0-100.0) L 07/03/24 09:34 ABG HCO3 29.5 mmol/L (22-26) H 07/03/24 09:34 ABG Base Excess 3.7 mmol/L (-2.0-2.0) H 07/03/24 09:34 [place]iaran Test Pos 07/03/24 09:34 Hematocrit 47.2 % (42-52) 07/03/24 09:34 O2 Delivery Device Nc 07/03/24 09:34 O2 Liters/Min 4.0 % 07/03/24 09:34 Cover Mat Machine Operator ID [place] 07/03/24 09:34 Sodium 136 mmol/L (136-145) 07/04/24 03:43 Potassium 5.1 mmol/L (3.5-5.1) 07/04/24 03:43 Chloride 97 mmol/L (98-107) L 07/04/24 03:43 Carbon Dioxide 28 mmol/L (22-29) 07/04/24 03:43 Anion Gap 16.1 (5-19) 07/04/24 03:43 BUN 22 mg/dL (8-23) 07/04/24 03:43 Creatinine 1.1 mg/dL (0.7-1.2) 07/04/24 03:43 GFR Calculation Not Reportable 07/04/24 03:43 Glucose 122 mg/dL (65-115) H 07/04/24 03:43 Estimat Average Glucose 131 06/29/24 09:36 Hemoglobin A1c 6.2 % (4.0-6.0) H 06/29/24 09:36 Calculated Osmolality 287 mOsm/kg (285-295) 07/04/24 03:43 Calcium 8.9 mg/dL (8.5-10.5) 07/04/24 03:43 Phosphorus 3.9 mg/dL (2.5-4.5) 07/02/24 03:07 Magnesium 2.2 mg/dL (1.7-2.3) 07/04/24 03:43 Total Bilirubin 2.1 mg/dL (0.15-1.2) H 07/04/24 03:43 AST 17 U/L (0-40) 07/04/24 03:43 ALT 14 U/L (0-41) 07/04/24 03:43 Alkaline Phosphatase 50 U/L (40-130) 07/04/24 03:43 Troponin T Baseline 69 ng/L (0-15) H 06/29/24 09:36 Troponin T 120 Minute 54.94 ng/L (0-15) H 06/29/24 11:39 Delta Troponin T -14.06 ABS# (0-10) L 06/29/24 11:39 Troponin T Hi Sens 6Hr 56.75 ng/L (0-15) H 06/29/24 15:24 Troponin T Hi Sens 6Hr Delta -12.25 ng/L (0-12) L 06/29/24 15:24 C-Reactive Protein 6.6 mg/L (0.0-4.9) H 06/29/24 09:36 NT-Pro-B Natriuret Pep 8347 pg/mL (0-125) H 07/04/24 03:43 Total Protein 6.0 g/dL (6.6-8.7) L 07/04/24 03:43 Albumin 3.7 g/dL (3.5-5.2) 07/04/24 03:43 Globulin 2.3 g/dL (1.3-4.6) 07/04/24 03:43 Triglycerides 93 mg/dL (0-150) 06/29/24 09:36 Cholesterol 107 mg/dL (0-200) 06/29/24 09:36 LDL Cholesterol, Calc 56 mg/dL (50-129) 06/29/24 09:36 HDL Cholesterol 32 mg/dL (60-100) L 06/29/24 09: LDL/HDL Ratio 1.75 RATIO (0.00-3.22) 06/29/24 09: Cholesterol/HDL Ratio 3.34 mg/dL (1.0-5.00) 06/29/24 09:36 Procalcitonin 0.07 ng/mL (0-0.5) 06/29/24 09:36 TSH 1.70 uIU/mL (0.27-4.20) 06/29/24 09:36 Urine Color Yellow (Yellow) 06/29/24 13:26 Urine Appearance Clear (CLEAR) 06/29/24 13:26 Urine pH 5.5 (5-7) 06/29/24 13:26 Ur Specific [place] 1.069 (1.005-1.030) H 06/29/24 13:26 Urine Protein 2+ (Negative) A 06/29/24 13:26 Urine Glucose (UA) Negative (Normal) 06/29/24 13:26 Urine Ketones Trace (Negative) 06/29/24 13:26 Urine Blood Negative (Negative) 06/29/24 13:26 Urine Nitrate Negative (Negative) 06/29/24 13:26 Urine Bilirubin Negative (Negative) 06/29/24 13:26 Urine Urobilinogen 1.0 mg/dL (Negative) 06/29/24 13:26 Ur Leukocyte Esterase Negative (Negative) 06/29/24 13:26 Urine RBC 0-2 /hpf (0-2) 06/29/24 13:26 Urine WBC 0-5 /hpf (0-5) 06/29/24 13:26 Ur Squamous Epith Cells 0-5 /hpf (0-5) 06/29/24 13:26 Amorphous Sediment Not Reportable 06/29/24 13:26 Urine Bacteria None seen /hpf (NONE) 06/29/24 13:26 Hyaline Casts 0.40 /lpf 06/29/24 13:26 Coronavirus (PCR) Negative (Negative) 06/29/24 12:34 Influenza A (PCR) Negative (Negative) 06/29/24 12:34 Influenza Type B (PCR) Negative (Negative) 06/29/24 12:34 RSV (PCR) Negative (Negative) 06/29/24 12:34 Vitals Last Vital Signs Temp 98.3 F 07/04/24 08:00 Pulse 99 07/04/24 08:00 Resp 13 07/04/24 08:00 BP 120/78 07/04/24 08:00 Pulse Ox 91 07/04/24 10:42 O2 Del Method Nasal Cannula 07/04/24 07:40 O2 Flow Rate 2 07/04/24 07:30 Discharge Plan Discharge Patient Disposition: Home Condition: Stable Prescriptions: No Action furosemide 40 mg tablet 40 mg PO DAILY atorvastatin 40 mg tablet 40 mg PO DAILY enoxaparin [Lovenox] 100 mg/mL syringe 100 mg SUBCUT Q12H Qty: 12 0RF Rx Instructions: Start 3 days prior to surgery. Last dose of Lovenox needs to be 12 hours prior to surgery. warfarin 1 mg tablet 1 mg PO DAILY Protocol: Dose Management Condition: Tuesday Dose/Route: 2 mg Instruction: 2 x 1 mg tablets Condition: Tuesday Dose/Route: 3 mg Instruction: 1 x 3 mg tablet Condition: Tuesday Dose/Route: 3 mg Instruction: 1 x 3 mg tablet Condition: Tuesday Dose/Route: 3 mg Instruction: 1 x 3 mg tablet Condition: Dose/Route: 3 mg Instruction: 1 x 3 mg tablet Condition: Tuesday Dose/Route: 3 mg Instruction: 1 x 3 mg tablet Condition: Tuesday Dose/Route: 2 mg Instruction: 2 x 1 mg tablets Protocol Text: Adjustment Start Date: Tuesday06/25/24 INR Value: 2.0 INR Date: 06/25/24 Recheck Date: 07/02/24 warfarin 3 mg tablet 3 mg PO DAILY Qty: 90 3RF Protocol: Dose Management Condition: Tuesday Dose/Route: 2 mg Instruction: 2 x 1 mg tablets Condition: Tuesday Dose/Route: 3 mg Instruction: 1 x 3 mg tablet Condition: Tuesday Dose/Route: 3 mg Instruction: 1 x 3 mg tablet Condition: Tuesday Dose/Route: 3 mg Instruction: 1 x 3 mg tablet Condition: Dose/Route: 3 mg Instruction: 1 x 3 mg tablet Condition: Tuesday Dose/Route: 3 mg Instruction: 1 x 3 mg tablet Condition: Tuesday Dose/Route: 2 mg Instruction: 2 x 1 mg tablets Protocol Text: Adjustment Start Date: Tuesday06/25/24 INR Value: 2.0 INR Date: 06/25/24 Recheck Date: 07/02/24 spironolactone 25 mg tablet 37.5 mg PO DAILY Qty: 135 1RF warfarin 4 mg tablet 4 mg PO DAILY Qty: 90 1RF Protocol: Dose Management Condition: Tuesday Dose/Route: 2 mg Instruction: 2 x 1 mg tablets Condition: Tuesday Dose/Route: 3 mg Instruction: 1 x 3 mg tablet Condition: Tuesday Dose/Route: 3 mg Instruction: 1 x 3 mg tablet Condition: Tuesday Dose/Route: 3 mg Instruction: 1 x 3 mg tablet Condition: Dose/Route: 3 mg Instruction: 1 x 3 mg tablet Condition: Tuesday Dose/Route: 3 mg Instruction: 1 x 3 mg tablet Condition: Tuesday Dose/Route: 2 mg Instruction: 2 x 1 mg tablets Protocol Text: Adjustment Start Date: Tuesday06/25/24 INR Value: 2.0 INR Date: 06/25/24 Recheck Date: 07/02/24 carvedilol 6.25 mg tablet 6.25 mg PO BID Qty: 180 3RF amlodipine 10 mg tablet 10 mg PO DAILY Qty: 90 2RF Discharge Orders: Discharge Order (Routine); Ordered 07/04/24 Ordered By: Michael Davis Referrals: Estefania Fernández NP [Nurse Practitioner] - 07/16/24 1:00 pm Enedina Peters MD [Primary Care Provider] - 07/19/24 9:30 am Discharge Diet: Cardiac Discharge Activity: Resume usual activity Patient Instructions: Heart Attack (DC), Heart Failure (DC), A-fib (Atrial Fibrillation) (DC), High Troponin Levels (GEN), Opioid Safety Activity Restrictions/Additional Instructions: - Please take Coumadin as prescribed, please recheck your INR tomorrow, follow- up with cardiology about further dosing of your Coumadin based upon your INR -Please take Lasix as prescribed -Please limit fluid intake to 1 to 2 L of fluid a day -If you feel more short of breath, or if you develop lower extremity edema, or you gain more than 3 pounds you can use an extra Lasix 40 mg daily with potassium replacement therapy 20 meq daily, unable to do this for a total of 3 continuous days. Beyond 3 days, if you continue to feel short of breath, go to the emergency room or see primary care or cardiology. -Please use LifeVest daily -If you have chest pain, palpitations, please go to the emergency room -Have your primary care provider recheck your kidney function in 1 week Discharge Attestations Time Spent in Discharge Care*: greater than 30 min Quality Metrics Clinical Quality Measures [ No reported AMI, CVA or VTE this stay] Coding Level of Care Code 36584 Total time (in minutes) for Discharge: 45 Diagnoses Acute on chronic combined systolic and diastolic congestive heart failure I50.43 Heart failure type: combined systolic and diastolic Paroxysmal atrial fibrillation I48.0 Atrial fibrillation type: paroxysmal Chronic anticoagulation Z79.01 Troponin level elevated R79.89
== END 2024-07-04 14:26 | disposition home or self-care (01) | DRG 286 ==
LOC: ER 11:42 → CSU 13:02
PROVIDERS: Internal Medicine; Nurse Practitioner Family; Admitting Provider Family Medicine; Emergency Provider Family Medicine; PCP Family Medicine; Visit Provider Family Medicine
PROC: B211YZZ Fluoroscopy of Multiple Coronary Arteries using Other Contrast (ICD-10-PCS; principal; 2024-07-03 06:00)
DX: I11.0 Hypertensive heart disease with heart failure (principal); I50.43 Acute on chronic combined systolic (congestive) and diastolic (congestive) heart failure; I48.0 Paroxysmal atrial fibrillation; I42.8 Other cardiomyopathies; R79.89 Other specified abnormal findings of blood chemistry; I34.0 Nonrheumatic mitral (valve) insufficiency; Z79.01 Long term (current) use of anticoagulants; Z87.891 Personal history of nicotine dependence; Z82.49 Family history of ischemic heart disease and other diseases of the circulatory system; Z80.9 Family history of malignant neoplasm, unspecified
CPT/HCPCS: 0241U; 36415; 36600; 71045; 71275; 80048; 80053; 80061; 81001; 82803; 83036; 83735; 83880; 84100; 84145; 84443; 84484; 85025; 85610; 86140; 93005; 93458; 94640; 94664; 94760; 96372; 96374; 96376; 99152; 99285; C1760; C1769; C1887; C1894; G0269; J1644; J1650; J1940; J2250; J2270; J2470; J3010; J7030; Q0163; Q9967

== ENCOUNTER → 2024-07-16 08:14 | Outpatient (BNVA) | payer MEDICARE, OTHER, SELFPAY | PROVIDERS: Family Provider Family Medicine; PCP Family Medicine; Visit Provider Nurse Practitioner Family | DX: I48.91 Unspecified atrial fibrillation (principal); Z87.891 Personal history of nicotine dependence; I50.23 Acute on chronic systolic (congestive) heart failure; Z79.01 Long term (current) use of anticoagulants | CPT/HCPCS: 99214 ==

== ENCOUNTER 2024-07-26 09:21 | Outpatient (CLI) | payer MEDICARE, OTHER, SELFPAY ==
--- NOTE | 2024-07-26 | MM_ITS ---
WS: [id number] BILATERAL 3D TOMOSYNTHESIS DIGITAL DIAGNOSTIC MAMMOGRAPHY WITH CAD CLINICAL INFORMATION: LUMP LT BREAST HISTORY: LEFT breast lump with prior biopsy. COMPARISON: 2018 TECHNIQUE: Bilateral CC, MLO, and ML views. FINDINGS: Scattered fibroglandular densities bilaterally. Dense subareolar LEFT breast nodule in the area of co ncern. Associated calcifications. This appears increased in size compared to previous. Ultrasound is pending. RIGHT breast is unremarkable. LEFT breast lesion today measures 2.6 x 2.0 cm on the mammogram. On the prior mammogram this measured 1.8 x 1.4 cm ULTRASOUND BREAST LEFT TECHNIQUE: Ultrasound left breast focused area of concern. CLINICAL INFORMATION: LUMP LT BREAST COMPARISON: 2018 FINDINGS: Again seen is the heterogeneous solid lesion subareolar LEFT breast with associated calcifications. T his was previously biopsied. This is increased in size compared to previous today measuring 2.5 x 2 .3 x 2.3 cm Previous biopsy demonstrated fibrocystic changes with hemangioma. Considering interval increase in si ze recommend surgical removal. MM/MM diag tomosynthesis [id number] IMPRESSION: DENSITY: There are scattered areas of fibroglandular density. BI-RADS: 4 - Suspicious Finding - Biopsy Should Be Considered. FOLLOW UP: Surgical Biopsy Recommended Recommend surgical removal of the LEFT breast nodule considering increase in si ze compared to 2018.
--- NOTE | 2024-07-26 09:32 | US_ITS ---
WS: [id number] BILATERAL 3D TOMOSYNTHESIS DIGITAL DIAGNOSTIC MAMMOGRAPHY WITH CAD CLINICAL INFORMATION: LUMP LT BREAST HISTORY: LEFT breast lump with prior biopsy. COMPARISON: 2018 TECHNIQUE: Bilateral CC, MLO, and ML views. FINDINGS: Scattered fibroglandular densities bilaterally. Dense subareolar LEFT breast nodule in the area of co ncern. Associated calcifications. This appears increased in size compared to previous. Ultrasound is pending. RIGHT breast is unremarkable. LEFT breast lesion today measures 2.6 x 2.0 cm on the mammogram. On the prior mammogram this measured 1.8 x 1.4 cm ULTRASOUND BREAST LEFT TECHNIQUE: Ultrasound left breast focused area of concern. CLINICAL INFORMATION: LUMP LT BREAST COMPARISON: 2018 FINDINGS: Again seen is the heterogeneous solid lesion subareolar LEFT breast with associated calcifications. T his was previously biopsied. This is increased in size compared to previous today measuring 2.5 x 2 .3 x 2.3 cm Previous biopsy demonstrated fibrocystic changes with hemangioma. Considering interval increase in si ze recommend surgical removal. US/US breast LT limited* [id number] IMPRESSION: DENSITY: There are scattered areas of fibroglandular density. BI-RADS: 4 - Suspicious Finding - Biopsy Should Be Considered. FOLLOW UP: Surgical Biopsy Recommended Recommend surgical removal of the LEFT breast nodule considering increase in si ze compared to 2018.
== END 2024-07-26 09:22 | disposition home or self-care (01) ==
PROVIDERS: Family Provider Family Medicine; PCP Family Medicine; Visit Provider Family Medicine
DX: N63.42 Unspecified lump in left breast, subareolar (principal); R92.323 Mammographic fibroglandular density, bilateral breasts; R92.1 Mammographic calcification found on diagnostic imaging of breast
CPT/HCPCS: 76642; 77062; G0279

== ENCOUNTER 2024-08-08 08:57 | Outpatient (RCR) | payer MEDICARE, OTHER, SELFPAY | END 2024-09-07 23:59 | disposition home or self-care (01) | LOC: CR 08:57 | PROVIDERS: Family Provider Family Medicine; PCP Family Medicine; Referring Provider Internal Medicine; Visit Provider Internal Medicine | DX: I50.40 Unspecified combined systolic (congestive) and diastolic (congestive) heart failure (principal) | CPT/HCPCS: 93798 ==

== ENCOUNTER → 2024-08-14 10:29 | Outpatient (BNVA) | payer MEDICARE, OTHER, SELFPAY | PROVIDERS: Family Provider Family Medicine; PCP Family Medicine; Visit Provider Internal Medicine | DX: I11.0 Hypertensive heart disease with heart failure (principal); I50.32 Chronic diastolic (congestive) heart failure; I48.0 Paroxysmal atrial fibrillation; I73.9 Peripheral vascular disease, unspecified; Z87.891 Personal history of nicotine dependence; Z79.01 Long term (current) use of anticoagulants | CPT/HCPCS: 99214 ==

== ENCOUNTER 2024-09-10 13:37 | Outpatient (RCR) | payer MEDICARE, OTHER, SELFPAY | END 2024-10-05 23:59 | disposition home or self-care (01) | LOC: CR 13:37 | PROVIDERS: Family Provider Family Medicine; PCP Family Medicine; Referring Provider Internal Medicine; Visit Provider Internal Medicine | DX: I50.40 Unspecified combined systolic (congestive) and diastolic (congestive) heart failure (principal) ==

== ENCOUNTER 2024-09-24 11:44 | Outpatient (CLI) | payer MEDICARE, OTHER, SELFPAY ==
--- NOTE | 2024-09-24 11:45 | USCV_ITS ---
Farshad Christiansen Age: 74 Gender: M : 1950 Exam Date: 09/24/2024 11:59 Ordering Phys: Samantha Read Technologist: CT [place] [facility] [place]: ef BP: 100 / 70 HR: Rhythm: Sinus Technical Quality: Adequate MEASUREMENTS (Male / Female) Normal Values 2D ECHO LVOT Diameter 2.0 cm LV Ejection Fraction MOD 4C 22.4 % LV Ejection Fraction MOD 2C 35.9 % LV Ejection Fraction 2C AL 35.6 % LA Diameter 6.8 cm RA Systolic Volume 4C AL 149.7 ml RA Systolic Volume 4C MOD 146.9 ml LA Sys Volume AL 151.0 cm cubed LA Sys Volume Index AL 68.0 cm cubed/m squared Aorta at Sinotubular Diameter 2.2 cm IVC Diameter 2.5 cm M-MODE LA Ao Ratio MM 2.6 AV Cusp Separation MM 1.3 cm FINDINGS Left Ventricle Moderately increased left ventricular cavity size. Severely decreased left ventricular systolic function. Left ventricular ejection fraction is estimated at 30 %. Global left ventricular hypokinesis. Right Ventricle Right Atrium Left Atrium Mitral Valve Aortic Valve Tricuspid Valve Pulmonic Valve Pericardium Aorta IVC CONCLUSIONS Limited echo Moderately increased left ventricular cavity size. Severely decreased left ventricular systolic function. Left ventricular ejection fraction is estimated at 30 %. Global left ventricular hypokinesis. There is no pericardial effusion. Right atrial pressure is around 15 mm of mercury. Veronica Alcantara MD (Electronically Signed) Final Date: 03 October 2024 22:09 S
== END 2024-09-24 11:45 | disposition home or self-care (01) ==
PROVIDERS: Family Provider Family Medicine; PCP Family Medicine; Visit Provider Nurse Practitioner Family
DX: I48.0 Paroxysmal atrial fibrillation (principal); I50.32 Chronic diastolic (congestive) heart failure; I51.7 Cardiomegaly; R93.0 Abnormal findings on diagnostic imaging of skull and head, not elsewhere classified
CPT/HCPCS: 93308

== ENCOUNTER 2024-10-06 11:52 | Outpatient (RCR) | payer SELFPAY | END 2024-11-05 23:59 | disposition home or self-care (01) | LOC: CR 11:52 | PROVIDERS: Family Provider Family Medicine; PCP Family Medicine; Referring Provider Internal Medicine; Visit Provider Internal Medicine | DX: I50.40 Unspecified combined systolic (congestive) and diastolic (congestive) heart failure (principal) ==

== ENCOUNTER 2024-10-29 14:05 | Outpatient (CLI) | payer MEDICARE, OTHER, SELFPAY | END 2024-10-29 14:06 | disposition home or self-care (01) | LOC: LAB 14:09 | PROVIDERS: Family Provider Family Medicine; PCP Family Medicine | DX: Z53.9 Procedure and treatment not carried out, unspecified reason (principal) | CPT/HCPCS: 36415 ==

== ENCOUNTER 2024-10-30 10:07 | Outpatient (CLI) | payer MEDICARE, OTHER, SELFPAY ==
[2024-10-30 11:19] LABS: Anion Gap 18.2 (5-19); Blood Urea Nitrogen 32 mg/dL (8-23); Calcium 8.9 mg/dL (8.5-10.5); Carbon Dioxide 28 mmol/L (22-29); Chloride 96 mmol/L (98-107); Glucose 124 mg/dL (65-115); Osmolality Calculated 292 mOsm/kg (285-295); Potassium 5.2 mmol/L (3.5-5.1); Sodium 137 mmol/L (136-145)
== END 2024-10-30 10:08 | disposition home or self-care (01) ==
PROVIDERS: Family Provider Family Medicine; PCP Family Medicine; Visit Provider Family Medicine
DX: I50.20 Unspecified systolic (congestive) heart failure (principal); I42.8 Other cardiomyopathies; I48.91 Unspecified atrial fibrillation; Z79.01 Long term (current) use of anticoagulants; N18.9 Chronic kidney disease, unspecified; I10 Essential (primary) hypertension; E78.00 Pure hypercholesterolemia, unspecified
CPT/HCPCS: 36415; 80048

== ENCOUNTER 2024-11-06 13:16 | Outpatient (RCR) | payer SELFPAY | END 2024-11-12 23:59 | disposition home or self-care (01) | LOC: CR 13:16 | PROVIDERS: Family Provider Family Medicine; PCP Family Medicine; Referring Provider Internal Medicine; Visit Provider Internal Medicine | DX: I50.32 Chronic diastolic (congestive) heart failure (principal) ==

== ENCOUNTER 2024-11-12 19:00 | Emergency (ER) | payer MEDICARE, OTHER, SELFPAY ==
[2024-11-12] VITALS (8 sets, daily range): BP systolic 58–168; BP diastolic 39–112; PULSE 43–109; RESP 16–21; O2SAT 84–98; BMI 29.4
--- NOTE | 2024-11-12 19:07 | ECG_ITS ---
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
--- NOTE | 2024-11-12 19:12 | XRR_ITS ---
PROCEDURE INFORMATION: Exam: XR Chest Exam date and time: 11/12/2024 7:25 PM Age: 74 years old Clinical indication: Device placement; Ett placement (vent status); Additional info: Et tube placement TECHNIQUE: Imaging protocol: Radiologic exam of the chest. Views: 1 view. COMPARISON: CR XR chest 1V portable [id number] 07/03/2024 9:35 AM FINDINGS: Limitations: Multiple leads and radiopaque objects project over the thorax limiting the evaluation. Left costophrenic area is not included in field of view. Tubes, catheters and devices: Endotracheal tube is present and terminates 2.5 cm above the clary. Enteric tube is present and courses outside the field of view. Lungs: Unremarkable. No consolidation. Pleural spaces: Unremarkable. No pleural effusion. No pneumothorax. Heart/Mediastinum: Cardiomegaly. Bones/joints: Unremarkable. XR/XR chest 1V portable [id number] IMPRESSION: Endotracheal tube is present and terminates approximately 3.5 cm above the clary.
--- NOTE | 2024-11-12 19:12 | ECG_ITS ---
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 Measurements Intervals [place] Rate: 81 P: -67 [place]: 231 QRS: -73 QRSD: 201 T: 102 QT: 479 QTc: 559 Interpretive Statements ATRIAL FIBRILLATION INTRAVENTRICULAR CONDUCTION DELAY [130+ ms QRS DURATION] Compared to ECG 06/29/2024 14:40:57 First degree AV block now present Myocardial infarct finding no longer present Electronically Signed On 11-12-2024 22:23:07 CDT by Dayron Gupta M.D. [id number]
[2024-11-12] MEDS: EPINEPHrine 2.5 MG in sodium chloride 0.9% 250 ML 6.06 MG IV (19:21)
[2024-11-12 19:25] LABS: ABG PH Result 7.08 (7.35-7.45); Alveolar-Arterial Oxygen Gradi 68.2 mmHg (5-10); Base Excess ABG -13.3 mmol/L (-2.0-2.0); Blood Gas Sample Site Brachial, right; Blood Gas Sample Type Arterial; Carboxyhemoglobin 0.5 %THgb (0.4-20.1); HCO3 ABG 17.3 mmol/L (22-26); HGB O2 Sat 95.3 % (95-100); Ionized Calcium Level - ABG 1.2 mmol/L (1.1-1.4); Methemoglobin 0.3 % (0.4-1.5); Oxygen Device AMBU; Oxygen Saturation ABG 96.2; PO2 FiO2 Ratio Arterial Blood 116; Potassium Level - ABG 4.9 mmol/L (3.5-5.0); Total Hemoglobin 16.3 g/dL (14-18)
--- NOTE | 2024-11-12 19:29 | PC.NURSE ---
1902- 8.[address] Blanchard measuring 24 at lip and secured by respiratory. 1901 FS 146 1905-Epi push HR 33 1907-paced 70BPM 40MA
[2024-11-12] MEDS: sodium bicarbonate 8.4% 1 mEq/mL 50mL Syr 100 MEQ IVP (19:37)
[2024-11-12 19:44] LABS: Basophils # 0.1 10^3/uL (0.0-0.1); Basophils % 0.6 %; Eosinophils # 0.1 10^3/uL (0.0-0.8); Eosinophils % 1.5 %; INR 2.57 (0.8-1.2); Lymphocytes # 2.8 10^3/uL (0.8-4.8); Lymphocytes % 31.5 %; Mean Corpuscular HGB Conc 30.8 g/dL (30-55); Mean Corpuscular Hemoglobin 32.1 pg (27-33); Mean Corpuscular Volume 104.2 fl (82-101); Mean Platelet Volume 10.4 fL (7.4-10.4); Monocytes # 0.6 10^3/uL (0.2-0.9); Monocytes % 6.7 %; Neutrophils # 4.88 10^3/uL (1.8-7.7); Neutrophils % 55.4 %; Nucleated Red Blood Cells % 0 %; Platelet Count 198 10^3/cmm (157-399); Red Blood Count 4.99 10^6/uL (3.85-5.65); Red Cell Distribution Width 15.2 % (12.1-15.1)
[2024-11-12 19:51] LABS: Bacteria Urine None Seen /hpf; Hyaline Casts Urine 19.43 /lpf; RBC Urine 0-2 /hpf (0-2); Squamous Epithelial Cell Urine 0-5 /hpf (0-5)
[2024-11-12 19:53] LABS: Troponin(5th) Baseline 33 ng/L (0-15)
[2024-11-12 20:00] LABS: Alanine Aminotransferase 64 U/L (0-41); Albumin Level 3.8 g/dL (3.5-5.2); Alkaline Phosphatase 89 U/L (40-130); Anion Gap 24.4 (5-19); Aspartate Amino Transferase 70 U/L (0-40); Blood Urea Nitrogen 29 mg/dL (8-23); Calcium 9.1 mg/dL (8.5-10.5); Carbon Dioxide 21 mmol/L (22-29); Chloride 97 mmol/L (98-107); Creatinine Clr Calc Pharmacy 40.2604; Globulin 3.7 g/dL (1.3-4.6); Glucose 161 mg/dL (65-115); Magnesium 2.8 mg/dL (1.7-2.3); NT Pro B Type Natriuretic Pept 5728 pg/mL (0-125); Osmolality Calculated 295 mOsm/kg (285-295); Potassium 4.4 mmol/L (3.5-5.1); Sodium 138 mmol/L (136-145); Total Bilirubin 0.9 mg/dL (0.15-1.2); Total Protein 7.5 g/dL (6.6-8.7)
[2024-11-12 20:02] LABS: Add Urine Microscopic? YES; Bilirubin Urine Neg (Negative); Blood Urine Neg (Negative); Glucose Urine UA 4+ (Normal); Ketones Urine Negative (Negative); Leukocyte Esterase Urine 1+ (Negative); Nitrate Urine Negative (Negative); Protein Urine Trace (Negative); Specific Gravity, Urine 1.015 (1.005-1.030); Urine Appearance Slightly Cloudy (CLEAR); Urine Color Yellow (Yellow); Urobilinogen Urine Norm (Negative); pH Urine 5 (5-7)
[2024-11-12 20:03] LABS: Add Urine Culture? Yes; WBC Urine 55-80 /hpf (0-5)
[2024-11-12 20:05] LABS: Amphetamines Screen Urine Negative (Negative); Barbiturates Screen Urine Negative (Negative); Benzodiazepines Screen Urine Negative (Negative); Cocaine Screen Urine Negative (Negative); Opiate Screen Urine Negative (Negative); PCP Screen Urine Negative (Negative); THC Screen Urine Negative (Negative)
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
[2024-11-12] MEDS: fentaNYL 1,000 MCG/100 ML BAG 2.5 MCG IV (20:17)
[2024-11-12 20:19] LABS: Lactic Sepsis W/Reflex 7.6 mmol/L (0.5-2.2)
[2024-11-12] MEDS: midazolam hcl 100 MG/100 ML BAG IV (20:20)
[2024-11-12 20:35] LABS: Creatine Phosphokinase 143 U/L (39-308)
[2024-11-12 20:37] LABS: Phosphorus 7.6 mg/dL (2.5-4.5)
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
--- NOTE | 2024-11-12 21:26 | PC.NURSE ---
[employer] Kevin Wylie released body to home.
[2024-11-12 21:39] LABS: Reflex Lactate Order REFLEX LACTIC ORDERD
--- NOTE | 2024-11-12 21:43 | PC.NURSE ---
JESSICA Pt is [facility] candidate. Ref # [id number]
--- NOTE | 2024-11-12 22:11 | PC.NURSE ---
Per MTS coordinator sarah Hammer is Saving Site candidate.
--- NOTE | 2024-11-12 23:16 | PC.NURSE ---
Cristine Time : [id number]
--- NOTE | 2024-11-13 05:03 | PC.NURSE ---
Family declined Saving Site. Body is full release.
== END 2024-11-12 23:11 | disposition expired ==
PROVIDERS: Emergency Provider Emergency Medicine; PCP Family Medicine
DX: I46.9 Cardiac arrest, cause unspecified (principal); I11.0 Hypertensive heart disease with heart failure; I50.9 Heart failure, unspecified
CPT/HCPCS: 36600; 51702; 71045; 80051; 80053; 80306; 81001; 82330; 82550; 82805; 83605; 83735; 83880; 84100; 84484; 85025; 85610; 87070; 87086; 87205; 93005; 94002; 94799; 96374; 96375; 99291; 99292; J0171; J2250; J3010; J7050; J9999